=== PATIENT | male | born 1935 | race Caucasian/White ===

== ENCOUNTER 2019-11-28 08:48 | Outpatient (CLI) | payer MEDICARE, SELFPAY ==
[2019-11-28 09:50] LABS: Blood Urea Nitrogen 16 mg/dL (9-20); Carbon Dioxide 29 mmol/L (22-30); Chloride 102 mmol/L (98-107); Cholesterol 190 mg/dL (0-200); Estimated Glomerular Filt Rate > 60; Glucose 91 mg/dL (75-110); HDL Direct 36 mg/dL; Sodium 139 mmol/L (137-145); Triglycerides 93 mg/dL (<150)
[2019-11-28 10:01] LABS: LDL Cholesterol Direct 138 mg/dL
== END 2019-11-28 08:49 | disposition home or self-care (01) ==
PROVIDERS: PCP Family Medicine; Visit Provider Physician Assistant
DX: E04.1 Nontoxic single thyroid nodule (principal); E78.5 Hyperlipidemia, unspecified; I10 Essential (primary) hypertension
CPT/HCPCS: 36415; 80048; 80061; 84443

== ENCOUNTER 2020-07-31 10:55 | Outpatient (CLI) | payer MEDICARE, SELFPAY ==
[2020-07-31 11:26] LABS: Basophils Absolute Auto 0.1 K/mm3 (0.0-0.1); Basophils Percent Auto 1.1 % (0.2-1.2); Eosinophils Absolute Auto 0.4 K/mm3 (0-0.3); Eosinophils Percent Auto 4.9 % (0-4.4); Hematocrit 44.8 % (42.0-52.0); Hemoglobin 15.5 g/dL (14.0-18.0); Immature Granulocyte Absolute 0.09 K/mm3 (0.00-0.031); Immature Granulocyte Percent A 1.1 % (0-0.5); Lymphocytes Absolute Auto 2.31 K/mm3 (0.9-3.2); Lymphocytes Percent Auto 28.2 % (18.3-44.2); Mean Corpuscular HGB Conc 34.6 g/dl (32-36); Mean Corpuscular Hemoglobin 30.5 pg (26-34); Mean Corpuscular Volume 88.2 fl (80-100); Mean Platelet Volume 8.5 fl (7.4-10.4); Monocytes Absolute Auto 0.9 K/mm3 (0.1-0.6); Monocytes Percent Auto 10.5 % (2.6-8.5); Neutrophils Absolute Auto 4.4 K/mm3 (1.3-6.7); Neutrophils Percent Auto 54.2 % (45.5-73.1); Platelet Count Result 279 k/mm3 (150-375); Red Blood Count 5.08 M/mm3 (4.6-6.20); Red Cell Distribution Width 13.3 % (11.5-14.5); White Blood Count 8.2 K/mm3 (4.5-10.0)
[2020-07-31 11:29] LABS: Add Urine Microscopic? YES; Appearance Urine Clear (Clear); Bilirubin Urine Negative (Negative); Blood Urine Negative (Negative); Color Urine Yellow (Yellow); Glucose Urine UA Negative (Negative); Ketones Urine Negative (Negative); Leukocyte Esterase Ur Negative LEU/UL (NEGATIVE); Mucus Urine Rare /lpf; Nitrate Urine Negative (Negative); Protein Urine Negative (Negative); RBC Urine 0-2 /hpf (0-2); Specific Grav Ur 1.015 (1.001-1.035); WBC Urine 0-3 /hpf (0-3)
[2020-07-31 11:38] LABS: Alanine Aminotransferase 15 U/L (4-50); Alkaline Phosphatase 85 U/L (38-126); Anion Gap 4 mmol/L (8-16); Aspartate Amino Transferase 26 U/L (17-59); Bilirubin,Total 0.4 mg/dL (0.2-1.3); Blood Urea Nitrogen 19 mg/dL (9-20); Calcium 9.3 mg/dL (8.4-10.2); Carbon Dioxide 31 mmol/L (22-30); Chloride 104 mmol/L (98-107); Estimated Glomerular Filt Rate > 60; Glucose 86 mg/dL (75-110); Potassium 4.5 mmol/L (3.4-5.0); Sodium 139 mmol/L (137-145)
[2020-07-31 12:45] LABS: Folic Acid > 20.0 ng/mL (2.76->20)
== END 2020-07-31 10:56 | disposition home or self-care (01) ==
LOC: ANHLAB 10:57
PROVIDERS: PCP Family Medicine; Visit Provider Physician Assistant
DX: R35.0 Frequency of micturition (principal); I10 Essential (primary) hypertension; R53.83 Other fatigue
CPT/HCPCS: 36415; 80053; 81001; 82607; 82746; 84443; 85025; 87086

== ENCOUNTER 2021-02-15 15:45 | Emergency (ER) | payer MEDICARE, SELFPAY ==
--- NOTE | ~2021-02-15 | US_ITS ---
EXAMINATION: US abdomen limited DATE: 02/15/2021 17:29 INDICATION: Abdominal pain. TECHNIQUE: Multiple grayscale and Doppler ultrasound images of the abdomen were obtained. COMPARISON: CT abdomen and pelvis 05/23/2014 FINDINGS: The visualized portions of the head and body of the pancreas are normal. The liver is kyler l without focal lesion. There is normal flow in main portal vein. The gallbladder is normal in size. No gallstones or gallbladder wall thickening. There was no sonographic Harvey's sign. The common duct is normal and measures 4 mm. Right kidney is normal in size. IMPRESSION: 1. Normal right upper quadrant ultrasound. Reviewed, dictated and finalized at location A.
--- NOTE | ~2021-02-15 | CT_ITS ---
EXAMINATION: CT abdomen pelvis w con DATE: 02/15/2021 18:05 INDICATION: Epigastric abdominal pain. TECHNIQUE: Computed tomography (CT) of the abdomen and pelvis was performed with 100 mL Omnipaque 350 intravenous contrast. Automated exposure control and iterative reconstruction technique were employe d. The dose-length product was 662.54 mGy-cm. COMPARISON: CT abdomen and pelvis 05/23/2014 FINDINGS: The visualized portions of the lung bases demonstrate mild atelectasis. A calcified right l troy nodule is consistent with old granulomatous disease. No pleural effusion. The heart size is kyler l. No pericardial effusion. There is a large paraesophageal hiatal hernia where the fundus is below t he diaphragm. There is a 5 mm cyst in the liver. The gallbladder, spleen, pancreas, and left adrenal gland are normal. There is a stable 13 mm mass in right adrenal gland measuring soft tissue attenuati on, likely an adenoma. There are cysts in the kidneys measuring up to 22 mm on the left. There are ch anges of left inguinal hernia repair. The prostate is severely enlarged. There are no dilated loops o f bowel. The appendix is not visualized. There are no pathologically enlarged lymph nodes. There is n o free intraperitoneal fluid. There is lumbar dextroscoliosis and severe spondylosis. Again seen are scattered benign bone islands. IMPRESSION: 1. Large paraesophageal hiatal hernia. Reviewed, dictated and finalized at location A.
[2021-02-15 15:57] VITALS: BP 151/87; PULSE 77; RESP 18; TEMP 36.7; O2SAT 94
--- NOTE | 2021-02-15 15:57 | ECG_ITS ---
Measurements Intervals [place] Rate: 61 P: 27 CT: 205 QRS: -12 QRSD: 107 T: 21 QT: 393 QTc: 399 Interpretive Statements SINUS RHYTHM WITH MARKED SINUS ARRHYTHMIA DELAYED PRECORDIAL R/S TRANSITION BORDERLINE T WAVE ABNORMALITY- INFERIOR LEADS BASELINE ARTIFACT- I, II, AVR BORDERLINE ECG Electronically Signed On 02-15-2021 16:39:54 CDT by Emmanuel Gonzalez D.O.
--- NOTE | 2021-02-15 16:17 | ED.ABDPAIN ---
HPI - Abdominal Pain General Chief Complaint: Abdominal Pain Stated Complaint: ABD PAIN Time Seen by Provider: 02/15/21 16:06 Source: patient Mode of arrival: ambulatory Limitations: no limitations History of Present Illness HPI narrative: This is an 85 year old male with history of GERD, hypertension, hyperlipidemia who presents for evaluation of nausea and abdominal discomfort. He states he was eating pizza when he developed sudden onset epigastric abdominal discomfort. He states he feels as if he needs to throw up. He denies vomiting, diarrhea, fever, cough, sob, chest pain. HE denies having similar pain in the past. He took elicia Hope but this did not improve his pain. Denies history of gallbladder disease. Related Data Home Medications Medication Instructions Recorded Confirmed aspirin 81 mg chewable tablet 81 mg PO DAILY 10/31/19 02/01/21 taktucop-lgqh-lkr-folic acid 3,500 mg PO 10/31/19 02/01/21 unit-18 mg-0.4 mg chewable tablet omega 2-fgl-hmk-fish oil 100 cap PO 10/31/19 02/01/21 mg-160 mg-1,000 mg capsule vit C 250 mg-vit E 90 mg-zinc 40 1 tablet PO BID 10/31/19 02/01/21 mg-copper 1 qu-iisbtj-lqaxwn capsule Allergies Allergy/AdvReac Type Severity Reaction Status Date / Time No Known Allergies Allergy Verified 02/15/21 16:00 Review of Systems Review of Systems: All systems reviewed & are unremarkable except as noted in HPI and below PMFSH Past Medical History Medical History (Updated 02/15/21 @ 20:21 by Mercy Gr MD) GERD (gastroesophageal reflux disease) HTN (hypertension) Movement disorder Sore throat Surgical History Surgical History (Updated 02/15/21 @ 16:18 by Mercy Gr MD) History of tonsillectomy Hx of appendectomy Family History Family History Sibling Family history of thyroid disease Patient's sister is in good health Patient's brother is in good health Social History Social History Smoking status: Never smoker Second hand tobacco smoke exposure: No Alcohol intake: current Substance use: never Gender identity (if verbalized by the patient): Male Exam Const: General: no acute distress and alert Orientation/consciousness: patient oriented x3 Eyes: EOM: EOMs intact bilaterally Resp: Effort & Inspection: normal respiratory effort and no retractions Auscultation: clear to auscultation bilaterally Cardio: Rate: regular rate Rhythm: regular rhythm Heart sounds: no murmurs GI: GI Palp: Yes Soft to palpation, No Tenderness to palpation present (GI) and No Guarding due to palpation present (GI) Auscultation: normal bowel sounds Skin: General skin exam: normal color Rashes: no rashes Neuro: General: patient oriented x3, moves all extremities and CN's II-XI intact bilaterally Psych: Mental Status: mental status grossly normal Affect: normal affect Course Reevaluation(s) Reevaluation #1: I have discussed with patient CT findings of hiatal hernia. Gallbladder US is normal. He states he feels better. He still has some discomfort. He states he will follow up with PCP. Date: 02/15/21 Time: 20:19 Vital Signs Vital signs: Vital Signs Temperature 98.0 F 02/15/21 15:57 Pulse Rate 77 02/15/21 15:57 Respiratory Rate 18 02/15/21 15:57 Blood Pressure 151/87 H 02/15/21 15:57 Pulse Oximetry 94 02/15/21 15:57 Temperature 98.0 F 02/15/21 15:57 Pulse Rate 78 02/15/21 20:37 Respiratory Rate 18 02/15/21 20:37 Blood Pressure 132/78 02/15/21 20:37 Pulse Oximetry 99 02/15/21 20:37 MDM - Abdominal Pain Lab Data Attestation: I reviewed the patient's lab results. Result diagrams: 02/15/21 16:47 02/15/21 16:47 Labs: Lab Results 02/15/21 02/15/21 02/15/21 Range/Units 16:47 16:47 16:47 WBC 11.5 H (4.5-10.0) K/mm3 RBC 5.13 (4.6-6.20) M/mm3
[2021-02-15] MEDS: PANTOPRAZOLE SODIUM IV 40 MG VIAL IV PUSH (16:48)
[2021-02-15] MEDS: ONDANSETRON INJ 4 MG/2 ML VIAL IV PUSH (16:48)
[2021-02-15 16:54] LABS: Basophils Absolute Auto 0.1 K/mm3 (0.0-0.1); Basophils Percent Auto 0.5 % (0.2-1.2); Eosinophils Absolute Auto 0.1 K/mm3 (0-0.3); Eosinophils Percent Auto 0.4 % (0-4.4); Hematocrit 45.9 % (42.0-52.0); Hemoglobin 15.6 g/dL (14.0-18.0); Immature Granulocyte Absolute 0.11 K/mm3 (0.00-0.031); Lymphocytes Absolute Auto 1.27 K/mm3 (0.9-3.2); Lymphocytes Percent Auto 11.1 % (18.3-44.2); Mean Corpuscular Hemoglobin 30.4 pg (26-34); Mean Corpuscular Volume 89.5 fl (80-100); Mean Platelet Volume 8.3 fl (7.4-10.4); Monocytes Absolute Auto 0.5 K/mm3 (0.1-0.6); Monocytes Percent Auto 3.9 % (2.6-8.5); Neutrophils Absolute Auto 9.5 K/mm3 (1.3-6.7); Neutrophils Percent Auto 83.1 % (45.5-73.1); Platelet Count Result 241 k/mm3 (150-375); Red Blood Count 5.13 M/mm3 (4.6-6.20); Red Cell Distribution Width 13.3 % (11.5-14.5); White Blood Count 11.5 K/mm3 (4.5-10.0)
[2021-02-15 17:05] LABS: Lactic Acid Reflex 1.6 mmol/L (0.7-2.1)
[2021-02-15 17:06] LABS: Potassium 3.9 mmol/L (3.4-5.0)
[2021-02-15 17:07] LABS: Alanine Aminotransferase 18 U/L (4-50); Albumin Level 4.1 g/dL (3.5-5.1); Alkaline Phosphatase 79 U/L (38-126); Anion Gap 5 mmol/L (8-16); Aspartate Amino Transferase 31 U/L (17-59); Bilirubin,Total 0.7 mg/dL (0.2-1.3); Blood Urea Nitrogen 16 mg/dL (9-20); Carbon Dioxide 29 mmol/L (22-30); Chloride 103 mmol/L (98-107); Estimated CRCL calculation 50 ml/min; Estimated Glomerular Filt Rate > 60; Glucose 108 mg/dL (75-110); Lipase 67 U/L (23-300); Sodium 137 mmol/L (137-145)
[2021-02-15 17:17] LABS: Troponin I < 0.012 ng/mL (0.000-0.034)
[2021-02-15 18:23] LABS: Add Urine Microscopic? YES; Appearance Urine Clear (Clear); Bilirubin Urine Negative (Negative); Blood Urine Negative (Negative); Color Urine Yellow (Yellow); Glucose Urine UA Negative (Negative); Ketones Urine 1+ mg/dL (Negative); Leukocyte Esterase Ur Negative LEU/UL (Negative); Mucus Urine Rare /lpf; Nitrate Urine Negative (Negative); Protein Urine 1+ mg/dL (Negative); RBC Urine 0-2 /hpf (0-2); Specific Grav Ur 1.024 (1.001-1.035); Squamous Epithelial Cell Urine Rare /hpf (Few); Urobilinogen Urine Negative mg/dL (<2.0); WBC Urine 0-3 /hpf
[2021-02-15] MEDS: BELLADONNA ALK/PHENOB ELIX 10 ML, MAG HYDROX/ALUMINUM HYD/SIMETH 30 ML, LIDOCAINE HCL 2... PO (19:07)
[2021-02-15 19:22] VITALS: BP 159/78; PULSE 89; RESP 18; O2SAT 99
[2021-02-15 20:14] LABS: Troponin I < 0.012 ng/mL (0.000-0.034)
[2021-02-15] MEDS: HYOSCYAMINE SULFATE 0.125 MG TABLET PO (20:35)
[2021-02-15 20:37] VITALS: BP 132/78; PULSE 78; RESP 18; O2SAT 99
== END 2021-02-15 20:38 | disposition home or self-care (01) ==
PROVIDERS: Emergency Provider General Practice; PCP Family Medicine
DX: R10.84 Generalized abdominal pain (principal); K21.9 Gastro-esophageal reflux disease without esophagitis; I10 Essential (primary) hypertension; E78.5 Hyperlipidemia, unspecified; Z79.82 Long term (current) use of aspirin
CPT/HCPCS: 36415; 74177; 76705; 80053; 81001; 83605; 83690; 84484; 85025; 93005; 96365; 96375; 99284; A9270; C9113; J0131; J2405; Q9967

== ENCOUNTER 2021-03-03 16:37 | Outpatient (CLI) | payer MEDICARE, SELFPAY ==
--- NOTE | ~2021-03-03 | XR_ITS ---
EXAMINATION: XR abdomen/kub 1V INDICATION: Constipation TECHNIQUE: Supine views of the abdomen were obtained on 2 radiographs. COMPARISON: CT, 02/15/2021 FINDINGS: There is a moderate volume of colonic stool. No dilated loops of bowel are evident. The barbara g bases are clear. A large hiatal hernia is noted. There is severe lumbar spondylosis. Mild bilateral hip osteoarthritis is noted. There are phleboliths in the pelvis. IMPRESSION: 1. No acute findings. Reviewed, dictated and finalized at location A. IMPRESSION: 1. No acute findings.
== END 2021-03-03 16:38 | disposition home or self-care (01) ==
PROVIDERS: PCP Family Medicine; Visit Provider Family Medicine
DX: K59.00 Constipation, unspecified (principal)
CPT/HCPCS: 74018

== ENCOUNTER 2021-03-22 09:32 | Outpatient (CLI) | payer MEDICARE, SELFPAY ==
--- NOTE | ~2021-03-22 | NM_ITS ---
EXAMINATION: NM hepatobiliary wo pharm DATE: 03/22/2021 12:32 INDICATION: Unspecified abdominal pain. COMPARISON: CT abdomen and pelvis 02/15/2021 TECHNIQUE: 5.1 mCi Tc-99m mebrofenin (Choletec) was administered intravenously. Scintigraphic images of the abdomen were obtained for one hour. Then, the patient drank 8 oz Ensure, and imaging was cont inued for 60 minutes. FINDINGS: There is normal clearance of radiotracer from the blood pool. There is homogeneous tracer u ptake by the liver. Activity progresses to the bowel and gallbladder. Gallbladder ejection fraction (GBEF) was 58%. Note that with this technique, normal GBEF >= 33%. IMPRESSION: 1. Normal hepatobiliary scintigraphy. Reviewed, dictated and finalized at location A.
== END 2021-03-22 09:33 | disposition home or self-care (01) ==
LOC: ANHIMG 09:35
PROVIDERS: PCP Family Medicine; Visit Provider Family Medicine
DX: R10.9 Unspecified abdominal pain (principal)
CPT/HCPCS: 78226; A9537

== ENCOUNTER 2021-04-12 01:46 | Day surgery (SDC) | payer MEDICARE, SELFPAY ==
[2021-04-01 11:34] VITALS: BMI 23.1
[2021-04-12 09:05] VITALS: BP 138/82; PULSE 66; RESP 18; TEMP 36.5; O2SAT 95
[2021-04-12] MEDS: LACTATED RINGERS 1,000 ML 150 ML IV CONT (09:21)
--- NOTE | 2021-04-12 09:52 | PM.HPGS ---
History of Present Illness History of Present Illness Consent: Risks, benefits, and alternatives have been discussed and questions answered. Patient agrees to proceed with procedure. Chief complaint: weight loss and change in bowel habits, nausea Narrative: Faustino Yates is a 85 year old male who has been troubled by epigastric and abdominal pain which, primarily after eating. These may than last for several hours. If it subsides will come back when he eats again. He has been found to have a large paraesophageal hiatal hernia on CT scan. He denies dysphagia. He also has had a change in bowel habits. He denies seeing blood in his stools Review of Systems Review of Systems: All systems reviewed & are unremarkable except as noted in HPI and below PMFSH Past Medical History Medical History GERD (gastroesophageal reflux disease) Hiatal hernia HTN (hypertension) Movement disorder Sore throat Surgical History Surgical History History of tonsillectomy Hx of appendectomy Status post hernia repair Family History Family History Sibling Family history of thyroid disease Patient's sister is in good health Patient's brother is in good health Social History Social History Smoking status: Never smoker Second hand tobacco smoke exposure: No Alcohol intake: current Drinks per week: 7 Alcohol use details: 1 beer per day Substance use: never Substance use type: does not use Living arrangements: with family Gender identity (if verbalized by the patient): Male Spiritual care concerns: No Meds Home Medications and Allergies Home Medications Medication Instructions Recorded Confirmed Type aspirin 81 mg chewable tablet 81 mg PO DAILY 10/31/19 04/12/21 History omega 0-glz-nwl-fish oil 100 1 cap PO DAILY 10/31/19 04/12/21 History mg-160 mg-1,000 mg capsule vit C 250 mg-vit E 90 mg-zinc 40 1 tablet PO BID 10/31/19 04/12/21 History mg-copper 1 av-axltan-gjvutl capsule esomeprazole magnesium 40 mg 40 mg PO DAILY #90 cap 09/08/20 04/12/21 Rx capsule,delayed release losartan 25 mg tablet 25 mg PO DAILY #30 tablet 03/16/21 04/12/21 Rx carbidopa-levodopa 250 tablet PO DAILY 04/01/21 04/12/21 History Allergies Allergy/AdvReac Type Severity Reaction Status Date / Time No Known Allergies Allergy Verified 04/12/21 09:04 Vital Signs Vital Signs - 24 hr 04/12/21 09:05 Temperature 36.5 C Pulse Rate 66 Respiratory Rate 18 Blood Pressure 138/82 Pulse Oximetry 95 Exam Resp: Auscultation: clear to auscultation bilaterally Cardio: Rate: regular rate Rhythm: regular rhythm GI: GI Palp: Yes Soft to palpation and No Tenderness to palpation present (GI) Assessment and Plan Assessment and plan (1) Epigastric pain: Code(s): R10.13 - Epigastric pain Status: Acute Assessment and Plan: EGD with possible biopsy or dilatation or cautery. (2) Change in bowel habits: Code(s): R19.4 - Change in bowel habit Status: Acute Assessment and Plan: Colonoscopy with possible biopsy or polypectomy or cautery or injection of substances.
--- NOTE | 2021-04-12 09:53 | WPDANESEPPF ---
Anes - Initial Pre Proc Eval Procedure: Operation Date: 04/12/21 10:15 Proposed Procedures p Esophagogastroduodenoscopy and Colonoscopy - Jesus Manuel Chong MD Date/Time: 04/12/21 09:53 Surgeon: Jesus Manuel Chong MD Pre Op Diagnosis: weight loss and change in bowel habits, nausea Patient Data Age: 85 Gender: M Height: 1.78 m Weight: 74.6 kg Last Vital Signs Temp 97.7 F 04/12/21 09:05 Pulse 66 04/12/21 09:05 Resp 18 04/12/21 09:05 BP 138/82 04/12/21 09:05 Pulse Ox 95 04/12/21 09:05 Allergies Allergy/AdvReac Type Severity Reaction Status Date / Time No Known Allergies Allergy Verified 04/12/21 09:04 Home Medications Medication Instructions Recorded Confirmed Type aspirin 81 mg chewable tablet 81 mg PO DAILY 10/31/19 04/12/21 History omega 8-wkf-uwd-fish oil 100 1 cap PO DAILY 10/31/19 04/12/21 History mg-160 mg-1,000 mg capsule vit C 250 mg-vit E 90 mg-zinc 40 1 tablet PO BID 10/31/19 04/12/21 History mg-copper 1 fa-uhclvd-rkhcao capsule esomeprazole magnesium 40 mg 40 mg PO DAILY #90 cap 09/08/20 04/12/21 Rx capsule,delayed release losartan 25 mg tablet 25 mg PO DAILY #30 tablet 03/16/21 04/12/21 Rx carbidopa-levodopa 250 tablet PO DAILY 04/01/21 04/12/21 History Patient hx anesthesia problems: none Family hx anesthesia problems: none PMFSH Past Medical History Medical History GERD (gastroesophageal reflux disease) Hiatal hernia HTN (hypertension) Movement disorder Sore throat Surgical History Surgical History History of tonsillectomy Hx of appendectomy Status post hernia repair Family History Family History Sibling Family history of thyroid disease Patient's sister is in good health Patient's brother is in good health Social History Social History Smoking status: Never smoker Second hand tobacco smoke exposure: No Alcohol intake: current Drinks per week: 7 Alcohol use details: 1 beer per day Substance use: never Substance use type: does not use Living arrangements: with family Gender identity (if verbalized by the patient): Male Spiritual care concerns: No Anes - Eval Final PreProcedure Day of Procedure 04/12/21 09:53 Patient weight: normal Heart: regular rate and rhythm Lungs: clear to auscultation Airway: Mallampati scale class II Neurological: alert and oriented Last oral intake: >/= 8 hours ASA classification: III Emergent: no Anesthetic plan: proceed Anesthesia type and monitoring: general GIVS and standard monitoring Informed Consent: The patient's anesthetic plan and its attendant risks and benefits were discussed with the patient/family/POA. Questions were solicited and answers provided to the satisfaction of the patient/family/POA.
[2021-04-12 10:34] VITALS: BP 104/63; PULSE 58; RESP 24; O2SAT 96
[2021-04-12 10:44] VITALS: BP 111/69; PULSE 61; RESP 22; O2SAT 96
[2021-04-12 10:54] VITALS: BP 110/65; PULSE 62; RESP 20; O2SAT 98
== END 2021-04-12 11:06 | disposition home or self-care (01) ==
PROVIDERS: PCP Family Medicine; Visit Provider Internal Medicine Gastroenterology
PROC: 0DJ08ZZ Inspection of Upper Intestinal Tract, Via Natural or Artificial Opening Endoscopic (ICD-10-PCS; CPT 43235; principal; 2021-04-12 10:15)
DX: R19.7 Diarrhea, unspecified (principal); K59.00 Constipation, unspecified; K64.8 Other hemorrhoids; K22.70 Barrett's esophagus without dysplasia; K44.9 Diaphragmatic hernia without obstruction or gangrene; I10 Essential (primary) hypertension; K21.9 Gastro-esophageal reflux disease without esophagitis; Z79.82 Long term (current) use of aspirin
CPT/HCPCS: 45378; 43239; 87081; 88305; J2704; J7120

== ENCOUNTER 2021-06-08 09:54 | Outpatient (CLI) | payer MEDICARE, SELFPAY ==
--- NOTE | ~2021-06-08 | XR_ITS ---
EXAMINATION: XR chest 2V DATE: 06/08/2021 11:33 INDICATION: Hiatal hernia. Encounter for other preprocedural examination. TECHNIQUE: Frontal and lateral views of the chest were obtained. COMPARISON: Chest 2 views 07/12/2019 FINDINGS: There is mild scarring at left lung apex. There is no pneumonia, pleural effusion, or pneum othorax. The heart size is normal. There is a large hiatal hernia. IMPRESSION: 1. Large hiatal hernia. Reviewed, dictated and finalized at location A. IMPRESSION: 1. Large hiatal hernia.
--- NOTE | 2021-06-08 11:00 | ECG_ITS ---
Measurements Intervals [place] Rate: 55 P: -18 NV: 198 QRS: -7 QRSD: 94 T: 7 QT: 405 QTc: 390 Interpretive Statements SINUS BRADYCARDIA BORDERLINE R WAVE PROGRESSION, ANTERIOR LEADS BASELINE ARTIFACT- I, III, AVR, AVL, AVF BORDERLINE ECG Electronically Signed On 06-08-2021 11:22:37 CDT by Emmanuel Gonzalez D.O.
[2021-06-08 11:32] LABS: Hematocrit 46.4 % (42.0-52.0); Hemoglobin 15.3 g/dL (14.0-18.0); Mean Platelet Volume 8.6 fl (7.4-10.4); Platelet Count Result 252 k/mm3 (150-375); Red Cell Distribution Width 13.7 % (11.5-14.5); White Blood Count 7.8 K/mm3 (4.5-10.0)
[2021-06-08 11:45] LABS: Anion Gap 8 mmol/L (8-16); Blood Urea Nitrogen 16 mg/dL (9-20); Calcium 9.2 mg/dL (8.4-10.2); Carbon Dioxide 28 mmol/L (22-30); Chloride 101 mmol/L (98-107); Estimated Glomerular Filt Rate > 60; Glucose 85 mg/dL (65-110); Potassium 4.1 mmol/L (3.4-5.0); Sodium 137 mmol/L (137-145)
== END 2021-06-08 09:55 | disposition home or self-care (01) ==
LOC: ANHSURGERY 10:00
PROVIDERS: PCP Family Medicine; Visit Provider Surgery
DX: Z01.818 Encounter for other preprocedural examination (principal); K44.9 Diaphragmatic hernia without obstruction or gangrene
CPT/HCPCS: 36415; 71046; 80048; 85027; 86850; 86900; 86901; 93005

== ENCOUNTER 2021-08-03 11:49 | Emergency (ER) | payer MEDICARE, SELFPAY ==
[2021-08-03 11:52] VITALS: BP 140/95; PULSE 116; RESP 20; TEMP 36.4; O2SAT 97
[2021-08-03 12:07] LABS: Basophils Absolute Auto 0.1 K/mm3 (0.0-0.1); Basophils Percent Auto 0.9 % (0.2-1.2); Eosinophils Absolute Auto 0.3 K/mm3 (0-0.3); Hematocrit 46.8 % (42.0-52.0); Hemoglobin 15.9 g/dL (14.0-18.0); Immature Granulocyte Absolute 0.05 K/mm3 (0.00-0.031); Immature Granulocyte Percent A 0.5 % (0-0.5); Lymphocytes Absolute Auto 2.51 K/mm3 (0.9-3.2); Lymphocytes Percent Auto 27.2 % (18.3-44.2); Mean Corpuscular Hemoglobin 30.3 pg (26-34); Mean Corpuscular Volume 89.3 fl (80-100); Mean Platelet Volume 8.4 fl (7.4-10.4); Monocytes Absolute Auto 0.8 K/mm3 (0.1-0.6); Neutrophils Absolute Auto 5.5 K/mm3 (1.3-6.7); Neutrophils Percent Auto 59.4 % (45.5-73.1); Platelet Count Result 280 k/mm3 (150-375); Red Blood Count 5.24 M/mm3 (4.6-6.20); White Blood Count 9.2 K/mm3 (4.5-10.0)
[2021-08-03 12:20] LABS: Alanine Aminotransferase 10 U/L (4-50); Albumin Level 4.5 g/dL (3.5-5.1); Alkaline Phosphatase 77 U/L (38-126); Anion Gap 6 mmol/L (8-16); Aspartate Amino Transferase 21 U/L (17-59); Bilirubin,Total 0.9 mg/dL (0.2-1.3); Blood Urea Nitrogen 19 mg/dL (9-20); Calcium 9.6 mg/dL (8.4-10.2); Carbon Dioxide 31 mmol/L (22-30); Chloride 103 mmol/L (98-107); Estimated CRCL calculation 41 ml/min; Estimated Glomerular Filt Rate 58; Glucose 98 mg/dL (65-110); Lipase 82 U/L (23-300); Potassium 4.1 mmol/L (3.4-5.0); Sodium 140 mmol/L (137-145)
[2021-08-03 15:13] VITALS: BP 180/95; PULSE 73; RESP 16; O2SAT 98
[2021-08-03] MEDS: BELLADONNA ALK/PHENOB ELIX 10 ML, MAG HYDROX/ALUMINUM HYD/SIMETH 30 ML, LIDOCAINE HCL 2... PO (15:42)
[2021-08-03 16:03] LABS: Add Urine Microscopic? YES; Appearance Urine Cloudy (Clear); Bilirubin Urine Negative (Negative); Blood Urine Negative (Negative); Color Urine Amber (Yellow); Glucose Urine UA Negative (Negative); Ketones Urine 1+ mg/dL (Negative); Leukocyte Esterase Ur Negative LEU/UL (Negative); Mucus Urine Heavy /lpf; Nitrate Urine Negative (Negative); Protein Urine 1+ mg/dL (Negative); Specific Grav Ur 1.028 (1.001-1.035); Squamous Epithelial Cell Urine Rare /hpf (Few); WBC Urine 0-3 /hpf
--- NOTE | 2021-08-03 16:33 | ED.ABDPAIN ---
HPI - Abdominal Pain General Chief Complaint: Abdominal Pain Stated Complaint: abd discomfort Time Seen by Provider: 08/03/21 15:09 History of Present Illness HPI narrative: Patient is an 86-year-old male who presents ER with epigastric discomfort/fullness. Worse when he eats. Has history of hiatal hernia and is supposed to undergo operative repair in 9 days. Reports early satiety and 3 pound weight loss. No nausea or vomiting. Has burning pain when he eats. Takes omeprazole 1 time a day. No fevers or chills or sweats. He is passing gas without issue and having normal bowel movements. He does use MiraLAX. Related Data Home Medications Medication Instructions Recorded Confirmed omega 3-sdy-zlx-fish oil 100 1 cap PO DAILY 10/31/19 06/08/21 mg-160 mg-1,000 mg capsule vit C 250 mg-vit E 90 mg-zinc 40 1 tablet PO DAILY 10/31/19 06/08/21 mg-copper 1 wc-gxqhzm-rhonrg capsule aspirin [Aspir-81] 81 mg PO DAILY 06/08/21 06/08/21 losartan 25 mg PO QAM 06/08/21 06/08/21 lymummts-too-LY-lycopen-lutein 1 tablet PO DAILY 06/08/21 06/08/21 [Centrum Silver Men] Allergies Allergy/AdvReac Type Severity Reaction Status Date / Time No Known Allergies Allergy Verified 06/08/21 10:18 Review of Systems Review of Systems: All systems reviewed & are unremarkable except as noted in HPI and below Constitutional: Constitutional: Denies chills, Denies fever(s) and Denies weakness Cardiovascular: Cardiovascular: Denies chest pain, Denies rapid heart rate and Denies radiating jaw, neck or arm pain Respiratory: Respiratory: Denies cough and Denies dyspnea Gastrointestinal: Gastrointestinal: Reports abdominal pain, Denies bloating, Denies constipation, Reports heartburn, Denies diarrhea, Denies nausea and Denies vomiting Neurologic: Denies focal weakness and Denies numbness [facility] Past Medical History Medical History (Updated 08/03/21 @ 16:47 by Bartolo Bernard MD) GERD (gastroesophageal reflux disease) Hiatal hernia HTN (hypertension) Movement disorder Restless leg syndrome Sore throat Surgical History Surgical History H/O colonoscopy 04/12/2021 History of tonsillectomy Hx of appendectomy S/P thyroid biopsy Status post hernia repair Family History Family History Sibling Family history of thyroid disease Patient's sister is in good health Patient's brother is in good health Son Diabetes mellitus Grandparent Throat cancer Social History Social History Smoking status: Never smoker Second hand tobacco smoke exposure: No Alcohol intake: current Drinks per week: 7 Alcohol use details: 1 beer per day Substance use: never Substance use type: does not use Additional living arrangements comments: SIGNIFICANT OTHER Gender identity (if verbalized by the patient): Male Sexual Orientation (if Verbalized by the Patient): Straight or Heterosexual Spiritual care concerns: No Exam Narrative: GENERAL: Well-appearing, well-nourished, and in no acute distress. HEAD: Normocephalic, atraumatic. CHEST: Clear to auscultation. No respiratory distress. HEART: Regular rate and rhythm. Normal peripheral pulses. ABDOMEN: Soft, nontender, nondistended. EXTREMITIES: Normal range of motion. No edema. SKIN: Warm, dry, no rash. NEURO: Alert and oriented x3. PSYCH: Normal mood and affect. Course Course Emergency Course: Symptoms improved with GI cocktail. Recommend increasing PPI to twice a day. May also use oral times. Patient verbalized understanding. Discharge home. Vital Signs Vital signs: Vital Signs Temperature 97.5 F L 08/03/21 11:52 Pulse Rate 116 H 08/03/21 11:52 Respiratory Rate 20 08/03/21 11:52 Blood Pressure 140/95 H 08/03/21 11:52 Pulse Oximetry 97 08/03/21 11:52 Temperature 97.5 F L
== END 2021-08-03 16:55 | disposition home or self-care (01) ==
PROVIDERS: Emergency Medicine; Emergency Provider Emergency Medicine; PCP Family Medicine
DX: K29.70 Gastritis, unspecified, without bleeding (principal); K44.9 Diaphragmatic hernia without obstruction or gangrene; K21.9 Gastro-esophageal reflux disease without esophagitis; I10 Essential (primary) hypertension; G25.81 Restless legs syndrome; Z79.82 Long term (current) use of aspirin
CPT/HCPCS: 36415; 80053; 81001; 83690; 85025; 99283; A9270

== ENCOUNTER 2021-08-06 14:36 | Outpatient (CLI) | payer MEDICARE, SELFPAY | END 2021-08-06 14:37 | disposition home or self-care (01) | LOC: ANHSURGERY 14:39 | PROVIDERS: PCP Family Medicine; Visit Provider Surgery | DX: Z01.812 Encounter for preprocedural laboratory examination (principal); K44.9 Diaphragmatic hernia without obstruction or gangrene | CPT/HCPCS: 36415; 86850; 86900; 86901 ==

== ENCOUNTER 2021-08-13 15:44 | Inpatient (IN) | payer MEDICARE, SELFPAY ==
[2021-06-08 10:25] VITALS: BP 142/74; PULSE 58; RESP 16; TEMP 36.8; O2SAT 96; BMI 24.2
[2021-08-06 13:23] VITALS: BMI 24.0
--- NOTE | 2021-08-11 11:00 | WPDANESEPPF ---
Anes - Initial Pre Proc Eval Procedure: Operation Date: 08/12/21 10:30 Proposed Procedures p Repair Paraesophageal Hiatal Hernia, with Laparoscopic Griselda Fundoplication - Mumtaz Suero MD Date/Time: 08/11/21 11:00 Surgeon: Mumtaz Suero MD Pre Op Diagnosis: paraesophageal hiatal hernia Patient Data Age: 86 Gender: M Height: 1.78 m Weight: 76 kg Last Vital Signs Temp 36.8 C 06/08/21 10:25 Pulse 58 L 06/08/21 10:25 Resp 16 06/08/21 10:25 BP 142/74 H 06/08/21 10:25 Pulse Ox 96 06/08/21 10:25 Allergies Allergy/AdvReac Type Severity Reaction Status Date / Time No Known Allergies Allergy Verified 08/12/21 09:41 Home Medications Medication Instructions Recorded Confirmed Type omega 6-ivv-pcu-fish oil 100 1 cap PO DAILY 10/31/19 08/12/21 History mg-160 mg-1,000 mg capsule vit C 250 mg-vit E 90 mg-zinc 40 1 tablet PO DAILY 10/31/19 08/12/21 History mg-copper 1 dd-hibebg-vozssk capsule aspirin [Aspir-81] 81 mg PO DAILY 06/08/21 08/12/21 History losartan 25 mg PO QAM 06/08/21 08/12/21 History dlmfrzum-lej-KH-lycopen-lutein 1 tablet PO DAILY 06/08/21 08/12/21 History [Centrum Silver Men] carbidopa 25 mg-levodopa 250 mg See Rx Instructions .ROUTE 06/09/21 08/12/21 Rx tablet .COMPLEX #90 tablet esomeprazole magnesium 40 mg 40 mg PO DAILY #90 cap 07/20/21 08/12/21 Rx capsule,delayed release Patient hx anesthesia problems: none Family hx anesthesia problems: none Results Review: All pre-operative results and documents have been reviewed as part of the pre-operative evaluation. [facility] Past Medical History Medical History GERD (gastroesophageal reflux disease) Hiatal hernia HTN (hypertension) Movement disorder Restless leg syndrome Sore throat Surgical History Surgical History H/O colonoscopy 04/12/2021 History of tonsillectomy Hx of appendectomy S/P thyroid biopsy Status post hernia repair Family History Family History Sibling Family history of thyroid disease Patient's sister is in good health Patient's brother is in good health Son Diabetes mellitus Grandparent Throat cancer Social History Social History Smoking status: Never smoker Second hand tobacco smoke exposure: No Alcohol intake: current Drinks per week: 7 Alcohol use details: 1 beer per day Substance use: never Substance use type: does not use Living arrangements: with friend(s) Additional living arrangements comments: SIGNIFICANT OTHER Gender identity (if verbalized by the patient): Male Sexual Orientation (if Verbalized by the Patient): Straight or Heterosexual Spiritual care concerns: No Anes - Eval Final PreProcedure Day of Procedure 08/11/21 11:00 Patient weight: normal Heart: regular rate and rhythm Lungs: clear to auscultation and normal air movement Airway: Mallampati scale class II Neurological: alert and oriented Last oral intake: >/= 8 hours ASA classification: III Emergent: no Anesthetic plan: proceed Anesthesia type and monitoring: general ETT and standard monitoring Results Review: All pre-operative results and documents have been reviewed as part of the pre-operative evaluation. Informed Consent: The patient's anesthetic plan and its attendant risks and benefits were discussed with the patient/family/POA. Questions were solicited and answers provided to the satisfaction of the patient/family/POA.
--- NOTE | 2021-08-11 17:31 | PM.IMHP ---
H&P: HPI History of Present Illness Date/Time: 08/11/21 17:31 Chief Complaint: Epigastric abdominal pain Narrative: patient is an 85-year-old man who frequently has epigastric abdominal pain after eating. He has had a poor appetite and has lost some weight. He has early satiety as well. He was seen by Dr. Chong who performed upper endoscopy 04/12/2021. 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 There was moderate chronic esophagitis and a large hiatal hernia. He had been in the emergency room February 15, [address] scan which also showed a large paraesophageal hiatal hernia. He was seen in the office back in April. Plans were made to proceed with repair of his paraesophageal hiatal hernia laparoscopically with Griselda fundoplication. Due to the COVID pandemic and limited surgical services due to high since this, the surgery could not be scheduled until recently. Patient is now taken to surgery for laparoscopic repair of paraesophageal hiatal hernia with Griselda fundoplication. Patient has continued to have symptoms and in fact was just in the emergency room in July with epigastric abdominal pain, early satiety, and trouble eating. Workup at that time revealed no new problems or evidence of gastric obstruction. His albumin was 4.5. He was discharged home but is now taken to surgery as discussed. Review of Systems Review of Systems: All systems reviewed & are unremarkable except as noted in HPI and below Constitutional: Constitutional: Denies chills and Denies fever(s) Cardiovascular: Cardiovascular: Denies chest pain, Denies diaphoresis, Denies dyspnea and Denies paroxysmal nocturnal dyspnea Respiratory: Respiratory: Denies chest congestion, Denies cough and Denies dyspnea Integumentary/Breasts: Skin/Breast: Denies lesions and Denies rash PMFSH Past Medical History Medical History GERD (gastroesophageal reflux disease) Hiatal hernia HTN (hypertension) Movement disorder Restless leg syndrome Sore throat Surgical History Surgical History H/O colonoscopy 04/12/2021 History of tonsillectomy Hx of appendectomy S/P thyroid biopsy Status post hernia repair Family History Family History Sibling Family history of thyroid disease Patient's sister is in good health Patient's brother is in good health Son Diabetes mellitus Grandparent Throat cancer Social History Social History Smoking status: Never smoker Second hand tobacco smoke exposure: No Alcohol intake: current Drinks per week: 7 Alcohol use details: 1 beer per day Substance use: never Substance use type: does not use Additional living arrangements comments: SIGNIFICANT OTHER Gender identity (if verbalized by the patient): Male Sexual Orientation (if Verbalized by the Patient): Straight or Heterosexual Spiritual care concerns: No Meds Home Medications and Allergies Home Medications Medication Instructions Recorded Confirmed Type omega 5-zas-gck-fish oil 100 1 cap PO DAILY 10/31/19 08/06/21 History mg-160 mg-1,000 mg capsule vit C 250 mg-vit E 90 mg-zinc 40 1 tablet PO DAILY 10/31/19 08/06/21 History mg-copper 1 bw-kpwjlo-pqapqc capsule aspirin [Aspir-81] 81 mg PO DAILY 06/08/21 08/06/21 History losartan 25 mg PO QAM 06/08/21 08/06/21 History xdazmucf-gmd-YF-lycopen-lutein 1 tablet PO DAILY 06/08/21 08/06/21 History [Centrum Silver Men] carbidopa 25 mg-levodopa 250 mg See Rx Instructions .ROUTE 06/09/21 08/06/21 Rx tablet .COMPLEX #90 tablet esomeprazole magnesium 40 mg 40 mg PO DAILY #90 cap 07/20/21 08/06/21 Rx capsule,delayed release Allergies Allergy/AdvReac Type Severity Reaction Status Date / Time No Known Allergies Allergy Verified 08/06/21 13:22
[2021-08-12] VITALS (9 sets, daily range): BP systolic 119–152; BP diastolic 58–79; PULSE 60–77; RESP 13–20; TEMP 36.1–36.7; O2SAT 92–100
[2021-08-12] MEDS: ACETAMINOPHEN 500 MG TABLET 1000 MG PO (09:45)
[2021-08-12] MEDS: LACTATED RINGERS 1,000 ML 30 ML IV CONT ×2 (09:55→15:52)
[2021-08-12] MEDS: KETOROLAC 15 MG/ML VIAL (*BKC) IV PUSH (09:59)
--- NOTE | 2021-08-12 11:37 | WPDHPUPDATE1 ---
History and Physical Update Update Date/Time: 08/12/21 11:37 History and Physical has been reviewed, including an updated exam of the patient. There are NO changes in the patient's condition. Risks, benefits, and alternatives have been discussed and questions answered. Patient agrees to proceed with procedure.
[2021-08-12] MEDS: ceFAZolin 2 GM/D5W 50 ML 2 GM/50 ML BAG IVPB (12:00)
--- NOTE | 2021-08-12 15:12 | P.PCNANE_ITS ---
Arterial Cath Proc Note Consent: I have discussed with the patient/family/POA, the non-emergent placement of an arterial catheter, including its clinical necessity/indication and associated potential risks and complications. The patient/family/POA and/or understand(s) and acknowledge(s) the need to proceed with the arterial catheter insertion as an important element of the patient's clinical management. Given emergent patient conditions, temporal constraints may have precluded informed consent. Time-Out: A pre-procedural Time-Out was completed immediately before starting the procedure and confirmed: Patient Identification, Site, Procedure, Patient Position and the Availability of Requisite Equipment. 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
--- NOTE | 2021-08-12 15:52 | W.PM.PROC2 ---
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 CT scan of the abdomen and pelvis showed a paraesophageal hiatal hernia. Patient has had some obstructive symptoms of epigastric abdominal pain vomiting early satiety. He is taken to surgery now for laparoscopic repair of paraesophageal hiatal hernia with Griselda fundoplication. Findings Showed a large paraesophageal hiatal hernia with most of the stomach in the mediastinum. The stomach was also twisted on itself and there was a large hernia sac. Description of Procedure Patient was taken to surgery and induced into general anesthesia. The abdomen is prepped and draped. Ayala catheter had been placed. Initial incision was placed in the midline above the umbilicus. Local was infiltrated here and then incision was made. The varies needle was used to gain intraperitoneal location. Saline drop test was used to check the location. We then insufflated through the varies needle. Once we were adequately insufflated, a 10 11 port was placed here. We then placed to lateral subcostal ports, 1 on the right and 1 on the left under direct visualization. The 1 on the right was a 12 mm port, the other was a 10 11. We placed 2 other 10 11 ports on the either side of midline cephalad to the initial laparoscopic site. Through the 12 mm right subcostal port we passed the liver retractor. This was used to elevate the lateral segment of the left lobe of the liver and expose the hiatal hernia. The patient was placed in reverse Trendelenburg. The LigaSure was used for nearly all the dissection that was not done bluntly. Hemostasis was achieved with the LigaSure as well. We started by dividing the hepatogastric ligament and gaining access to the right zoe of the diaphragm. Some of the hernia sac was dissected free on the right side. The stomach was mostly reduced from the mediastinum. We then started our dissection going across the anterior aspect of the zoe with the LigaSure. We dissected around the hernia sac and mostly reduced into the peritoneal cavity. Some dissection around the mediastinal esophagus was carried out on the patient's right as well. We then turned our attention to the greater curvature of the stomach and the associated hernia sac there. There were numerous adhesions to the left zoe of the diaphragm. There were adhesions associated with the hernia sac. All of these were taken down with the LigaSure. We exposed the left zoe of the diaphragm. We divided the greater omentum and gained access to the lesser sac. We then continued this dissection with the LigaSure dividing the greater omentum from the upper stomach and cardia of the stomach all the way to the hiatus. There was some adhesions to the posterior upper stomach which were also taken down. We then started dissecting the hernia sac on the left side of the stomach and mediastinum down into the abdominal cavity as well. We then excised some of the hernia sac both from the left side and the right side. Several pieces of hernia sac were removed and sent labeled hernia sac for hiatal hernia. When this was accomplished, we then dissected the mediastinal attachments to the left side of the esophagus thereby mobilizing it. The stomach was now lying pretty well within the abdomen. I went back to the right side of the esophagus. I dissected in the area of the posterior zoe dissecting under the distal esophagus in elevating the esop
--- NOTE | 2021-08-12 16:31 | SUR.PHASEI ---
1620: Arterial line pulled per RN. Pressure dressing applied. No bleeding noted at this time.
--- NOTE | 2021-08-12 17:26 | PC.NURSE ---
This patient, Faustino Yates, was admitted to Medical Room 253-01. Patient/family oriented to hospital policies and general routines including ID bracelet, bed and alarms, visiting hours, pain management, procedures, bathroom and other care routines, personal items, smoking policy, room service/diet, and visiting hours. Information on how to activate the Rapid Response Team has been discussed. Patient/Family are encouraged to report perceived risks to care and to ask questions if they do not understand what they are told or what they should do.
[2021-08-12] MEDS: LACTATED RINGERS 1,000 ML 100 ML IV CONT (17:31)
[2021-08-12] MEDS: IBUPROFEN IV 800 MG/200 ML 800 MG/200 ML BAG 400 MG IVPB (21:50)
[2021-08-13] VITALS (7 sets, daily range): BP systolic 115–127; BP diastolic 60–65; PULSE 70–78; RESP 16–18; TEMP 36.3–37.3; O2SAT 93–98; BMI 22.7
--- NOTE | 2021-08-13 00:48 | PC.NURSE ---
Pt had lawson catheter initiated for surgery, there is no order to remove catheter and there is no documentation for who/when catheter was placed/removed. Dr Medley notified pt unable to urinate, order received to replace lawson catheter at this time.
[2021-08-13] MEDS: LIDOCAINE HCL 2% GEL UROJET 10 ML PKG MUCOUS MEM (00:50)
[2021-08-13] MEDS: LACTATED RINGERS 1,000 ML 100 ML IV CONT ×2 (03:31→13:23)
[2021-08-13] MEDS: IBUPROFEN IV 800 MG/200 ML 800 MG/200 ML BAG 400 MG IVPB ×2 (03:44→13:29)
[2021-08-13 05:27] LABS: Hematocrit 38.5 % (42.0-52.0); Hemoglobin 12.9 g/dL (14.0-18.0); Mean Corpuscular HGB Conc 33.5 g/dl (32-36); Mean Corpuscular Hemoglobin 30.7 pg (26-34); Mean Corpuscular Volume 91.7 fl (80-100); Mean Platelet Volume 8.9 fl (7.4-10.4); Platelet Count Result 174 k/mm3 (150-375); Red Cell Distribution Width 13.2 % (11.5-14.5)
[2021-08-13 05:42] LABS: Anion Gap 4 mmol/L (8-16); Blood Urea Nitrogen 14 mg/dL (9-20); Calcium 8.2 mg/dL (8.4-10.2); Carbon Dioxide 28 mmol/L (22-30); Chloride 103 mmol/L (98-107); Estimated CRCL calculation 54 ml/min; Estimated Glomerular Filt Rate > 60; Glucose 109 mg/dL (65-110); Potassium 4.2 mmol/L (3.4-5.0); Sodium 135 mmol/L (137-145)
[2021-08-13] MEDS: ENOXAPARIN 40 MG/0.4 ML SYRINGE SUB-Q (09:39)
[2021-08-13] MEDS: LOSARTAN POTASSIUM 25 MG TABLET PO (09:39)
[2021-08-13] MEDS: CARBIDOPA/LEVODOPA 25/250 MG TABLET 1 TABLET BY MOUTH (09:39)
[2021-08-13] MEDS: OPTI-GEN TAB 1 TABLET PO (09:39)
[2021-08-13] MEDS: ASPIRIN 81 MG ENTERIC TABLET PO (09:40)
[2021-08-13] MEDS: PANTOPRAZOLE 40 MG TABLET PO (09:40)
[2021-08-13] MEDS: ONDANSETRON INJ 4 MG/2 ML VIAL IV PUSH (10:53)
[2021-08-13] MEDS: MORPHINE SULFATE (*CRX) 2 MG/ML INJ IV PUSH (10:54)
--- NOTE | 2021-08-13 13:11 | WPDANESPN ---
Anes - Prog Note Post-Op Date/Time: 08/13/21 13:11 Cardiovascular status: normal Respiratory status: normal Airway patency: baseline Mental status: baseline Post-Op hydration status: normal Vital Signs: Last Vital Signs Temp 37.3 C 08/13/21 12:00 Pulse 78 08/13/21 12:00 Resp 16 08/13/21 12:00 BP 116/62 08/13/21 12:00 Pulse Ox 95 08/13/21 12:00 Pain Score (VAS): 3 I/O: Intake & Output 08/12/21 08/13/21 08/13/21 23:59 07:59 15:59 Intake Total 1150 1200 420 Balance 1150 1200 420 Laboratory Tests 08/13/21 05:06 08/13/21 05:06 08/13/21 08/13/21 05:06 05:06 WBC 8.0 RBC 4.20 L Hgb 12.9 L D Hct 38.5 L MCV 91.7 MCH 30.7 MCHC 33.5 RDW 13.2 Plt Count 174 MPV 8.9 Sodium 135 L Potassium 4.2 Chloride 103 Carbon Dioxide 28 Anion Gap 4 L BUN 14 D Creatinine 0.90 Estim Creat Clear Calc 54 Estimated GFR > 60 Glucose 109 Calcium 8.2 L Post-procedural complaints: none Patient Feedback: Patient satisfied with anesthetic care.
--- NOTE | 2021-08-13 13:37 | PM.PNGS ---
Progress Note: A&P Assessment and Plan (1) Paraesophageal hiatal hernia: Code(s): K44.9 - Diaphragmatic hernia without obstruction or gangrene Status: Chronic Assessment and Plan: Doing okay postop day 1. Laparoscopic repair of large paraesophageal hiatal hernia with Griselda fundoplication. Advised patient to take pain medication when uncomfortable. Offered sleeping pill but he declined. Up today. Leave Ayala catheter in today but DC tomorrow. Will likely feel better in 24-48 hours. (2) GERD with esophagitis: Code(s): K21.00 - Gastro-esophageal reflux disease with esophagitis, without bleeding Status: Chronic (3) Restless leg syndrome: Code(s): G25.81 - Restless legs syndrome Status: Chronic Assessment and Plan: Continue home meds (4) HTN (hypertension): Qualifiers: Hypertension type: unspecified Qualified Code(s): I10 - Essential (primary) hypertension Code(s): I10 - Essential (primary) hypertension Status: Chronic Assessment and Plan: Monitor, continue home meds Subjective Subjective Date/Time Seen: 08/13/21 13:37 Post Op day: 1 Patient reports: still having pain, no flatus, no bowel movement and afebrile Interval history: Trouble sleeping last night, had more pain than he thought he would. Less pain this morning than last night. Exam Const: General: comfortable, no acute distress, alert and awake Nutritional Appearance: thin GI: Inspection: non-distended, incision (Dry and healing well) and scaphoid GI Palp: Yes Soft to palpation, Yes Tenderness to palpation present (GI) and No Hernia present Auscultation: normal bowel sounds Objective Data Vital Signs Vital Signs: Vital Signs - 24 hr 08/12/21 15:52 08/12/21 16:05 08/12/21 16:20 Temperature 36.1 C L Pulse Rate 74 60 67 Respiratory Rate 20 18 20 Blood Pressure 128/79 152/74 H 127/70 Pulse Oximetry 98 100 92 08/12/21 16:35 08/12/21 16:50 08/12/21 19:55 Temperature 36.3 C L Pulse Rate 65 66 67 Respiratory Rate 20 13 16 Blood Pressure 123/69 134/58 L 134/72 Pulse Oximetry 95 93 98 08/12/21 20:38 08/12/21 23:55 08/13/21 03:55 Temperature 36.3 C L 36.4 C L Pulse Rate 68 77 73 Respiratory Rate 18 16 16 Blood Pressure 119/68 115/61 Pulse Oximetry 94 95 98 08/13/21 08:00 08/13/21 09:29 08/13/21 12:00 Temperature 36.4 C L 37.3 C Pulse Rate 72 78 Respiratory Rate 16 16 16 Blood Pressure 118/60 116/62 Pulse Oximetry 97 98 95 08/13/21 13:29 Temperature 37.3 C Pulse Rate Respiratory Rate Blood Pressure Pulse Oximetry Intake/Output Intake/Output: Intake & Output 08/10/21 08/11/21 08/12/21 08/13/21 23:59 23:59 23:59 23:59 Intake Total 1200 2620 Balance 1200 2620 Meds/Results Medications: Active Medications Generic Name Dose Route Start Last Admin Trade Name Freq PRN Reason Stop Dose Admin Acetaminophen 500 mg 08/12/21 16:59 Acetaminophen 500 Mg Tablet PO Q6H PRN Mild Pain (1-3) or Fever Aspirin 81 mg 08/13/21 09:00 08/13/21 09:40 Aspirin 81 Mg Enteric Tablet PO 81 mg DAILY REBECA Administration Carbidopa/Levodopa 1 tablet 08/13/21 09:00 08/13/21 09:39 Carbidopa/Levodopa 25/250 Mg Tablet BY MOUTH 1 tablet DAILY REBECA Administration Enoxaparin Sodium 40 mg 08/13/21 09:00 08/13/21 09:39 Enoxaparin 40 Mg/0.4 Ml Syringe SUB-Q 40 mg DAILY REBECA Administration Lactated Ringer's 1,000 mls @ 80 mls/hr 08/12/21 16:59 08/13/21 13:29 Lr - Lactated Ringers Iv IV CONT 0 mls/hr .[id number] REBECA Infusion Ibuprofen 800 mg in 200 mls @ 400 mls/hr 08/12/21 16:59 08/13/21 13:29 Caldolor 800 Mg/200 Ml IVPB 400 mls/hr Q6H PRN Administration Pain Rated 4-6 Losartan Potassium 25 mg 08/13/21 09:00 08/13/21 09:39 Losartan Potassium 25 Mg Tablet PO 25 mg QAM REBECA Administration Morphine Sulfate 2 mg 08/12/21 17:23 08/13/21 10:54 Morphine Sulfate (*Crx) 2 Mg/M
[2021-08-14] MEDS: IBUPROFEN IV 800 MG/200 ML 800 MG/200 ML BAG 400 MG IVPB (01:27)
[2021-08-14 05:49] LABS: Hematocrit 37.6 % (42.0-52.0); Hemoglobin 12.8 g/dL (14.0-18.0); Mean Platelet Volume 9.1 fl (7.4-10.4); Platelet Count Result 156 k/mm3 (150-375); Red Blood Count 4.13 M/mm3 (4.6-6.20); Red Cell Distribution Width 13.2 % (11.5-14.5); White Blood Count 9.9 K/mm3 (4.5-10.0)
[2021-08-14 05:56] LABS: Anion Gap 3 mmol/L (8-16); Blood Urea Nitrogen 9 mg/dL (9-20); Calcium 8.4 mg/dL (8.4-10.2); Carbon Dioxide 29 mmol/L (22-30); Chloride 106 mmol/L (98-107); Estimated CRCL calculation 60 ml/min; Estimated Glomerular Filt Rate > 60; Glucose 102 mg/dL (65-110); Potassium 3.5 mmol/L (3.4-5.0); Sodium 138 mmol/L (137-145)
[2021-08-14 06:00] VITALS: BP 148/85; PULSE 77; RESP 18; TEMP 36.7; O2SAT 96
[2021-08-14] MEDS: ACETAMINOPHEN 500 MG TABLET PO (06:59)
[2021-08-14] MEDS: CARBIDOPA/LEVODOPA 25/250 MG TABLET 1 TABLET BY MOUTH (09:20)
[2021-08-14] MEDS: ENOXAPARIN 40 MG/0.4 ML SYRINGE SUB-Q (09:20)
[2021-08-14] MEDS: PANTOPRAZOLE 40 MG TABLET PO (09:21)
[2021-08-14] MEDS: ASPIRIN 81 MG ENTERIC TABLET PO (09:21)
[2021-08-14] MEDS: OPTI-GEN TAB 1 TABLET PO (09:21)
[2021-08-14] MEDS: LOSARTAN POTASSIUM 25 MG TABLET PO (09:21)
--- NOTE | 2021-08-14 11:10 | PM.PNGS ---
Progress Note: A&P Assessment and Plan (1) Paraesophageal hiatal hernia: Code(s): K44.9 - Diaphragmatic hernia without obstruction or gangrene Status: Chronic Assessment and Plan: transition to oral pain meds. Increase activity. Will continue full liquid diet today with the option of transitioning to soft diet tomorrow if no dysphagia. Possibly home tomorrow. 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 No dysphagia or emesis. Pain control improving. Ambulating some. Exam GI: Inspection: incision ( intact with glue) GI Palp: Yes Soft to palpation and Yes Tenderness to palpation present (GI) ( Incisional) Auscultation: normal bowel sounds Objective Data Vital Signs Vital Signs: Vital Signs - 24 hr 08/13/21 12:00 08/13/21 13:29 08/13/21 15:55 Temperature 37.3 C 37.3 C 36.9 C Pulse Rate 78 76 Respiratory Rate 16 16 Blood Pressure 116/62 118/64 Pulse Oximetry 95 96 08/13/21 19:55 08/14/21 06:00 Temperature 36.3 C L 36.7 C Pulse Rate 78 77 Respiratory Rate 16 18 Blood Pressure 127/65 148/85 H Pulse Oximetry 93 96 Intake/Output Intake/Output: Intake & Output 08/11/21 08/12/21 08/13/21 08/14/21 23:59 23:59 23:59 23:59 Intake Total 1200 3960 770 Output Total 850 800 Balance 1200 3110 -30 Meds/Results Medications: Active Medications Generic Name Dose Route Start Last Admin Trade Name Freq PRN Reason Stop Dose Admin Acetaminophen 500 mg 08/12/21 16:59 08/14/21 06:59 Acetaminophen 500 Mg Tablet PO 500 mg Q6H PRN Administration Mild Pain (1-3) or Fever Hydrocodone Bitart/Acetaminophen 1 tab 08/14/21 11:09 Hydrocodone/Acetaminophen (*Crx) 5-325 Mg Tablet PO Q4H PRN Pain Rated 4-6 Hydrocodone Bitart/Acetaminophen 1 tab 08/14/21 11:09 Hydrocodone/Acetaminophen (*Crx) 7.5-325 Mg Tablet PO Q4H PRN Pain Rated 7-10 Aspirin 81 mg 08/13/21 09:00 08/14/21 09:21 Aspirin 81 Mg Enteric Tablet PO 81 mg DAILY REBECA Administration Carbidopa/Levodopa 1 tablet 08/13/21 09:00 08/14/21 09:20 Carbidopa/Levodopa 25/250 Mg Tablet BY MOUTH 1 tablet DAILY REBECA Administration Enoxaparin Sodium 40 mg 08/13/21 09:00 08/14/21 09:20 Enoxaparin 40 Mg/0.4 Ml Syringe SUB-Q 40 mg DAILY REBECA Administration Losartan Potassium 25 mg 08/13/21 09:00 08/14/21 09:21 Losartan Potassium 25 Mg Tablet PO 25 mg QAM REBECA Administration Multivitamins/Minerals 1 tablet 08/13/21 09:00 08/14/21 09:21 Opti-Gen Tab PO 1 tablet DAILY REBECA Administration Ondansetron HCl 4 mg 08/12/21 16:59 08/13/21 10:53 Ondansetron Inj 4 Mg/2 Ml Vial IV PUSH 4 mg Q4H PRN Administration Nausea And Vomiting Pantoprazole Sodium 40 mg 08/13/21 09:00 08/14/21 09:21 Pantoprazole 40 Mg Tablet PO 40 mg QAM REBECA Administration Labs Labs: Laboratory Results - last 24 hr 08/14/21 08/14/21 05:02 05:02 WBC 9.9 RBC 4.13 L Hgb 12.8 L Hct 37.6 L MCV 91.0 MCH 31.0 MCHC 34.0 RDW 13.2 Plt Count 156 MPV 9.1 Sodium 138 Potassium 3.5 Chloride 106 Carbon Dioxide 29 Anion Gap 3 L BUN 9 D Creatinine 0.80 Estim Creat Clear Calc 60 Estimated GFR > 60 Glucose 102 Calcium 8.4 Amg Follow-up Billing Inpatient Follow-up [id number] Post-op Follow Up
[2021-08-14 15:05] VITALS: BP 141/77; PULSE 80; RESP 18; TEMP 37.2; O2SAT 97
[2021-08-14] MEDS: HYDROcodone/acetaminophen (*CRX) 7.5-325 MG TABLET 1 TAB PO (20:17)
[2021-08-14 21:19] VITALS: BP 155/87; PULSE 87; RESP 18; TEMP 36.6; O2SAT 96
[2021-08-15] MEDS: HYDROcodone/acetaminophen (*CRX) 5-325 MG TABLET 1 TAB PO (04:24)
[2021-08-15 04:46] LABS: Add Urine Microscopic? YES; Appearance Urine Clear (Clear); Bilirubin Urine Negative (Negative); Blood Urine 2+ (Negative); Color Urine Straw (Yellow); Glucose Urine UA Negative (Negative); Ketones Urine Negative (Negative); Leukocyte Esterase Ur Negative LEU/UL (Negative); Mucus Urine Rare /lpf; Nitrate Urine Negative (Negative); Protein Urine Negative (Negative); RBC Urine 21-50 /hpf (0-2); Specific Grav Ur 1.008 (1.001-1.035); Urobilinogen Urine Negative mg/dL (<2.0); WBC Urine 0-3 /hpf
[2021-08-15 05:19] LABS: Hematocrit 36.8 % (42.0-52.0); Hemoglobin 12.9 g/dL (14.0-18.0); Mean Corpuscular HGB Conc 35.1 g/dl (32-36); Mean Corpuscular Hemoglobin 30.5 pg (26-34); Mean Platelet Volume 8.9 fl (7.4-10.4); Platelet Count Result 160 k/mm3 (150-375); Red Blood Count 4.23 M/mm3 (4.6-6.20); White Blood Count 10.1 K/mm3 (4.5-10.0)
[2021-08-15 05:26] VITALS: BP 157/84; PULSE 69; RESP 18; TEMP 36.8; O2SAT 98
[2021-08-15 05:36] LABS: Anion Gap 4 mmol/L (8-16); Blood Urea Nitrogen 9 mg/dL (9-20); Calcium 8.6 mg/dL (8.4-10.2); Carbon Dioxide 28 mmol/L (22-30); Chloride 105 mmol/L (98-107); Estimated CRCL calculation 68 ml/min; Estimated Glomerular Filt Rate > 60; Glucose 101 mg/dL (65-110); Potassium 3.7 mmol/L (3.4-5.0); Sodium 137 mmol/L (137-145)
[2021-08-15] MEDS: ASPIRIN 81 MG ENTERIC TABLET PO (08:46)
[2021-08-15] MEDS: OPTI-GEN TAB 1 TABLET PO (08:46)
[2021-08-15] MEDS: LOSARTAN POTASSIUM 25 MG TABLET PO (08:46)
[2021-08-15] MEDS: CARBIDOPA/LEVODOPA 25/250 MG TABLET 1 TABLET BY MOUTH (08:46)
[2021-08-15] MEDS: ENOXAPARIN 40 MG/0.4 ML SYRINGE SUB-Q (08:46)
[2021-08-15] MEDS: PANTOPRAZOLE 40 MG TABLET PO (08:46)
--- NOTE | 2021-08-15 11:13 | PM.PNGS ---
Progress Note: A&P Assessment and Plan (1) Paraesophageal hiatal hernia: Code(s): K44.9 - Diaphragmatic hernia without obstruction or gangrene Status: Chronic Assessment and Plan: increase activity. Patient is still not ambulating much and has concerns about bringing him home. With urinary retention and still minimal activity, will plan to keep in hospital today. 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 Will start patient on Flomax. Consult Urology tomorrow morning for possible voiding trial or for follow-up in office. Subjective Subjective Date/Time Seen: 08/15/21 11:13 Interval history: Patient tolerating diet. Pain improved. Patient did have urinary retention overnight requiring straight catheterization and then Ayala catheter placement. Exam GI: Inspection: non-distended GI Palp: Yes Soft to palpation, Yes Tenderness to palpation present (GI) ( Incisional) and No Guarding due to palpation present (GI) Auscultation: normal bowel sounds Objective Data Vital Signs Vital Signs: Vital Signs - 24 hr 08/14/21 15:05 08/14/21 21:19 08/15/21 05:26 Temperature 37.2 C 36.6 C 36.8 C Pulse Rate 80 87 69 Respiratory Rate 18 18 18 Blood Pressure 141/77 H 155/87 H 157/84 H Pulse Oximetry 97 96 98 Intake/Output Intake/Output: Intake & Output 08/12/21 08/13/21 08/14/21 08/15/21 23:59 23:59 23:59 23:59 Intake Total 1200 3960 1010 860 Output Total 213 849 9866 Balance 1200 3110 210 -1640 Meds/Results Medications: Active Medications Generic Name Dose Route Start Last Admin Trade Name Freq PRN Reason Stop Dose Admin Acetaminophen 500 mg 08/12/21 16:59 08/14/21 06:59 Acetaminophen 500 Mg Tablet PO 500 mg Q6H PRN Administration Mild Pain (1-3) or Fever Hydrocodone Bitart/Acetaminophen 1 tab 08/14/21 11:09 08/15/21 04:24 Hydrocodone/Acetaminophen (*Crx) 5-325 Mg Tablet PO 1 tab Q4H PRN Administration Pain Rated 4-6 Hydrocodone Bitart/Acetaminophen 1 tab 08/14/21 11:09 08/14/21 20:17 Hydrocodone/Acetaminophen (*Crx) 7.5-325 Mg Tablet PO 1 tab Q4H PRN Administration Pain Rated 7-10 Aspirin 81 mg 08/13/21 09:00 08/15/21 08:46 Aspirin 81 Mg Enteric Tablet PO 81 mg DAILY REBECA Administration Carbidopa/Levodopa 1 tablet 08/13/21 09:00 08/15/21 08:46 Carbidopa/Levodopa 25/250 Mg Tablet BY MOUTH 1 tablet DAILY REBECA Administration Enoxaparin Sodium 40 mg 08/13/21 09:00 08/15/21 08:46 Enoxaparin 40 Mg/0.4 Ml Syringe SUB-Q 40 mg DAILY REBECA Administration Losartan Potassium 25 mg 08/13/21 09:00 08/15/21 08:46 Losartan Potassium 25 Mg Tablet PO 25 mg QAM [facility] Administration Multivitamins/Minerals 1 tablet 08/13/21 09:00 08/15/21 08:46 Opti-Gen Tab PO 1 tablet DAILY REBECA Administration Ondansetron HCl 4 mg 08/12/21 16:59 08/13/21 10:53 Ondansetron Inj 4 Mg/2 Ml Vial IV PUSH 4 mg Q4H PRN Administration Nausea And Vomiting Pantoprazole Sodium 40 mg 08/13/21 09:00 08/15/21 08:46 Pantoprazole 40 Mg Tablet PO 40 mg QAM REBECA Administration Tamsulosin HCl 0.4 mg 08/15/21 11:11 Tamsulosin Hcl 0.4 Mg Capsule PO 08/15/21 11:12 ONCE ONE Tamsulosin HCl 0.4 mg 08/16/21 09:00 Tamsulosin Hcl 0.4 Mg Capsule PO QAM [facility] Labs Labs: Laboratory Results - last 24 hr 08/15/21 08/15/21 08/15/21 04:23 05:08 05:08 WBC 10.1 H RBC 4.23 L Hgb 12.9 L Hct 36.8 L MCV 87.0 MCH 30.5
[2021-08-15] MEDS: TAMSULOSIN HCL 0.4 MG CAPSULE PO (12:14)
[2021-08-15 14:55] VITALS: BP 134/74; PULSE 72; RESP 16; TEMP 37.1; O2SAT 98
[2021-08-15 20:42] VITALS: BP 125/81; PULSE 89; RESP 20; TEMP 37.4; O2SAT 96
[2021-08-16] MEDS: ACETAMINOPHEN 500 MG TABLET PO (01:05)
[2021-08-16 03:52] VITALS: BP 143/79; PULSE 85; RESP 18; TEMP 36; O2SAT 94
[2021-08-16 05:10] LABS: Hematocrit 38.3 % (42.0-52.0); Hemoglobin 13.5 g/dL (14.0-18.0); Mean Corpuscular HGB Conc 35.2 g/dl (32-36); Mean Corpuscular Hemoglobin 30.5 pg (26-34); Mean Corpuscular Volume 86.7 fl (80-100); Mean Platelet Volume 9.5 fl (7.4-10.4); Platelet Count Result 186 k/mm3 (150-375); Red Blood Count 4.42 M/mm3 (4.6-6.20); Red Cell Distribution Width 12.8 % (11.5-14.5); White Blood Count 10.3 K/mm3 (4.5-10.0)
[2021-08-16 05:16] LABS: Anion Gap 4 mmol/L (8-16); Blood Urea Nitrogen 12 mg/dL (9-20); Calcium 8.8 mg/dL (8.4-10.2); Carbon Dioxide 27 mmol/L (22-30); Chloride 104 mmol/L (98-107); Estimated CRCL calculation 68 ml/min; Estimated Glomerular Filt Rate > 60; Glucose 97 mg/dL (65-110); Potassium 3.8 mmol/L (3.4-5.0); Sodium 135 mmol/L (137-145)
--- NOTE | 2021-08-16 08:02 | WPDURCON ---
Assessment and Plan Assessment and plan (1) Postoperative urinary retention: Code(s): N99.89 - Other postprocedural complications and disorders of genitourinary system; R33.8 - Other retention of urine Status: Acute Assessment and Plan: Postop urinary retention resulting from underlying BPH complicated by relative immobility, analgesics/anesthetics, etc. Discharge with indwelling Ayala to leg bag during the day and bedside bag at night Discharge on tamsulosin 0.4 mg q.h.s. My office will contact patient regarding follow-up for voiding trial later this week. Urology Consult Note HPI Date Seen: 08/16/21 Requesting Physician: Mumtaz Suero MD Primary Care Provider: Demarco Hylton MD Consult Narrative Narrative: Faustino Yates is a 86 year old male who is well known to Dr. Gomez with a longstanding history of underlying, as yet untreated, BPH and chronic PSA elevation. He has now developed urinary retention following a Griselda fundoplication. With replacement of urethral catheter approximately 700 cc of urine was obtained. He is tolerating the catheter well Review of Systems Cardiovascular: Cardiovascular: Denies chest pain, Denies lightheadedness, Denies palpitations and Denies dyspnea Respiratory: Respiratory: Denies dyspnea Gastrointestinal: Gastrointestinal: Denies diarrhea, Denies nausea and Denies vomiting Genitourinary: Genitourinary: Denies hematuria and Denies dysuria Endocrine: Endocrine: Denies palpitations PMFSH Past Medical History Medical History GERD (gastroesophageal reflux disease) Hiatal hernia HTN (hypertension) Movement disorder Restless leg syndrome Sore throat Surgical History Surgical History H/O colonoscopy 04/12/2021 History of tonsillectomy Hx of appendectomy S/P thyroid biopsy Status post hernia repair Family History Family History Sibling Family history of thyroid disease Patient's sister is in good health Patient's brother is in good health Son Diabetes mellitus Grandparent Throat cancer Social History Social History Smoking status: Never smoker Second hand tobacco smoke exposure: No Alcohol intake: current Drinks per week: 3 Alcohol use details: 1 beer per day Substance use: never Substance use type: does not use Living arrangements: with friend(s) Additional living arrangements comments: SIGNIFICANT OTHER Gender identity (if verbalized by the patient): Male Sexual Orientation (if Verbalized by the Patient): Straight or Heterosexual Spiritual care concerns: No Meds Home Medications and Allergies Home Medications Medication Instructions Recorded Confirmed Type omega 8-gdj-smv-fish oil 100 1 cap PO DAILY 10/31/19 08/12/21 History mg-160 mg-1,000 mg capsule vit C 250 mg-vit E 90 mg-zinc 40 1 tablet PO DAILY 10/31/19 08/12/21 History mg-copper 1 ga-evolsu-gcumcg capsule aspirin [Aspir-81] 81 mg PO DAILY 06/08/21 08/12/21 History losartan 25 mg PO QAM 06/08/21 08/12/21 History fypvddjb-wtr-LN-lycopen-lutein 1 tablet PO DAILY 06/08/21 08/12/21 History [Centrum Silver Men] carbidopa 25 mg-levodopa 250 mg See Rx Instructions .ROUTE 06/09/21 08/12/21 Rx tablet .COMPLEX #90 tablet esomeprazole magnesium 40 mg 40 mg PO DAILY #90 cap 07/20/21 08/12/21 Rx capsule,delayed release Allergies Allergy/AdvReac Type Severity Reaction Status Date / Time No Known Allergies Allergy Verified 08/12/21 09:41 Vital Signs Vital Signs - 24 hr 08/15/21 14:55 08/15/21 20:42 08/16/21 03:52 Temperature 98.8 F 99.4 F 96.8 F L Pulse Rate 72 89 85 Respiratory Rate 16 20 18 Blood Pressure 134/74 125/81 143/79 H Pulse Oximetry 98 96 94 Exam Const: General:
[2021-08-16] MEDS: ASPIRIN 81 MG ENTERIC TABLET PO (08:31)
[2021-08-16] MEDS: ENOXAPARIN 40 MG/0.4 ML SYRINGE SUB-Q (08:31)
[2021-08-16] MEDS: OPTI-GEN TAB 1 TABLET PO (08:31)
[2021-08-16] MEDS: PANTOPRAZOLE 40 MG TABLET PO (08:31)
[2021-08-16] MEDS: LOSARTAN POTASSIUM 25 MG TABLET PO (08:31)
[2021-08-16] MEDS: TAMSULOSIN HCL 0.4 MG CAPSULE PO (08:31)
--- NOTE | 2021-08-16 09:10 | PM.DS ---
DS: Admitting Diagnosis Discharge Date 08/16/2021 Admitting Diagnosis hiatal hernia, gastroesophageal reflux disease DS: Discharge Diagnosis Discharge Diagnosis (1) Paraesophageal hiatal hernia: Code(s): K44.9 - Diaphragmatic hernia without obstruction or gangrene Status: Chronic (2) GERD with esophagitis: Code(s): K21.00 - Gastro-esophageal reflux disease with esophagitis, without bleeding Status: Chronic (3) Postoperative urinary retention: Code(s): N99.89 - Other postprocedural complications and disorders of genitourinary system; R33.8 - Other retention of urine Status: Acute DS: Summary Hospital Course Reason for hospitalization: postoperative recovery after hiatal hernia repair Hospital Course: this is an 86-year-old man who presented for laparoscopic hiatal hernia repair and Griselda fundoplication on 08/12/2021. Surgery was uncomplicated and he was admitted to the hospital postoperatively for recovery. He was initially started on clear liquid diet and had a Ayala in place. His diet was slowly advanced to full liquids over the 1st couple days. His Ayala catheter was removed on 08/14/2021. He was unable to urinate and was straight cathed once but still had problems with urinary retention and eventually had to have Ayala replaced on 08/15/2021. He was able to be advanced to a soft diet. Urology was consulted for urinary retention and he was started on Flomax. His pain was better controlled and Ayala was left in place. He was discharged on 08/16/2021 with Ayala and leg bag. Status at Discharge Functional status at discharge: independent ambulation Overall status at discharge: patient is progressing back to baseline Time Spent with Patient Time attestation: Total time spent providing and/or coordinating discharge services: Time spent: Less than 30 minutes Exam GI: Inspection: non-distended and incision ( Intact with glue) GI Palp: Yes Soft to palpation and Yes Tenderness to palpation present (GI) ( incisional) Auscultation: normal bowel sounds DS: Data Data Completed and Pending Pending studies at discharge: Pending at discharge 08/12/21 14:05 Surgical [PTH] Routine Labs on day of discharge: Labs from last 24 hours 08/16/21 08/16/21 04:44 04:44 WBC 10.3 H RBC 4.42 L Hgb 13.5 L Hct 38.3 L MCV 86.7 MCH 30.5 MCHC 35.2 RDW 12.8 Plt Count 186 MPV 9.5 Sodium 135 L Potassium 3.8 Chloride 104 Carbon Dioxide 27 Anion Gap 4 L BUN 12 Creatinine 0.70 Estim Creat Clear Calc 68 Estimated GFR > 60 Glucose 97 Calcium 8.8 Discharge Plan Discharge Attending physician on discharge: Mumtaz Suero Consulting providers: Billy Gomez Discharging Clinician: Charlie Justice Patient Disposition: Home, Self-Care Activity: may shower, no straining and other - see discharge instructions Diet: other - see discharge instructions Wound Care Instructions: other - see discharge instructions Discharge Instructions: patient may shower, no bathing or soaking for 2 weeks no lifting greater than 10 lb for the next 2 weeks maintain a soft or full liquid diet for the next 2 weeks, food should be small bite size and easy to chew and swallow call office for increasing pain, nausea or vomiting, or other problems with incisions Patient Instructions: Antibiotic Form Stand Alone Forms: General Discharge Information Follow-up/Referrals: Mumtaz Suero MD [Physician] - Keep Reg. Scheduled Appt. Discharge Medications: New hydrocodone-acetaminophen 5-325 mg tablet 1 tablet PO Q4H PRN (Reason: pain) Qty: 10 RF: 0 tamsulosin [Flomax] 0.4 mg capsule 0.4 mg PO HS Qty: 30 RF: 0 Continued PreserVision AREDS-2 280-329-09-1 st-iviz-bg-mg capsule 1 tablet PO DAILY RF: 0 Fish Oil 100-160-1,000 mg capsule 1 cap PO DAILY RF: 0 aspirin [Aspir-81] 81 mg Tablet,Delayed Release (
[2021-08-16] MEDS: polyethylene glycoL 3350 17 GM POWD.PACK PO (09:51)
== END 2021-08-16 12:10 | disposition home or self-care (01) | DRG 328 ==
LOC: ANHSURGERY 16:09 → ANH2MED 08-16 09:16
PROVIDERS: Admitting Provider Surgery; PCP Family Medicine; Visit Provider Surgery
PROC: 0DV44ZZ Restriction of Esophagogastric Junction, Percutaneous Endoscopic Approach (ICD-10-PCS; CPT 43281; principal; 2021-08-12 11:30)
DX: K44.9 Diaphragmatic hernia without obstruction or gangrene (principal); K21.00 Gastro-esophageal reflux disease with esophagitis, without bleeding; K22.70 Barrett's esophagus without dysplasia; N99.89 Other postprocedural complications and disorders of genitourinary system; R33.8 Other retention of urine; Z23 Encounter for immunization; N40.0 Benign prostatic hyperplasia without lower urinary tract symptoms; G25.81 Restless legs syndrome; Z90.49 Acquired absence of other specified parts of digestive tract
CPT/HCPCS: 36415; 80048; 81001; 85027; 88302; 90471; 90653; A9270; C1713; G0008; J0690; J1100; J1170; J1650; J1741; J1885; J2250; J2270; J2405; J2704; J2710; J3010; J7120

== ENCOUNTER → 2021-09-01 02:20 | Outpatient (CLI) | payer MEDICARE, SELFPAY ==
[2021-09-01 18:47] LABS: SARS-CoV-2 RNA PCR Negative
== END ==
PROVIDERS: PCP Family Medicine; Visit Provider Physician Assistant
DX: R53.83 Other fatigue (principal); J02.9 Acute pharyngitis, unspecified; Z20.822 Contact with and (suspected) exposure to COVID-19
CPT/HCPCS: C9803; U0003; U0005

== ENCOUNTER 2021-09-24 11:49 | Outpatient (CLI) | payer MEDICARE, SELFPAY ==
--- NOTE | ~2021-09-24 | XR_ITS ---
EXAMINATION: XR chest 2V DATE: 09/24/2021 12:22 INDICATION: Cough, abnormal blood gas level TECHNIQUE: PA and lateral views of the chest are obtained. COMPARISON: 06/08/2021 FINDINGS: The lungs are free of acute opacities. There is no pleural effusion or pneumothorax. The ca rdiomediastinal silhouette is normal. There are bridging osteophytes at multiple levels in the spine, consistent with diffuse idiopathic skeletal hyperostosis (DISH). IMPRESSION: 1. No acute cardiopulmonary abnormality. Reviewed, dictated and finalized at location A. Y MAKER
[2021-09-24 12:18] LABS: Basophils Absolute Auto 0.1 K/mm3 (0.0-0.1); Basophils Percent Auto 0.5 % (0.2-1.2); Eosinophils Absolute Auto 0.2 K/mm3 (0-0.3); Eosinophils Percent Auto 2.4 % (0-4.4); Hematocrit 42.9 % (42.0-52.0); Hemoglobin 14.3 g/dL (14.0-18.0); Immature Granulocyte Absolute 0.05 K/mm3 (0.00-0.031); Immature Granulocyte Percent A 0.5 % (0-0.5); Lymphocytes Percent Auto 17.2 % (18.3-44.2); Mean Corpuscular HGB Conc 33.3 g/dl (32-36); Mean Corpuscular Volume 90.1 fl (80-100); Mean Platelet Volume 8.5 fl (7.4-10.4); Monocytes Percent Auto 10.8 % (2.6-8.5); Neutrophils Absolute Auto 6.4 K/mm3 (1.3-6.7); Neutrophils Percent Auto 68.6 % (45.5-73.1); Platelet Count Result 290 k/mm3 (150-375); Red Blood Count 4.76 M/mm3 (4.6-6.20); Red Cell Distribution Width 13.5 % (11.5-14.5); White Blood Count 9.3 K/mm3 (4.5-10.0)
[2021-09-24 12:28] LABS: Alanine Aminotransferase 10 U/L (4-50); Albumin Level 4.1 g/dL (3.5-5.1); Alkaline Phosphatase 83 U/L (38-126); Anion Gap 9 mmol/L (8-16); Aspartate Amino Transferase 21 U/L (17-59); Bilirubin,Total 0.6 mg/dL (0.2-1.3); Blood Urea Nitrogen 22 mg/dL (9-20); Calcium 9.3 mg/dL (8.4-10.2); Carbon Dioxide 28 mmol/L (22-30); Chloride 100 mmol/L (98-107); Estimated Glomerular Filt Rate > 60; Glucose 92 mg/dL (65-110); Potassium 4.1 mmol/L (3.4-5.0); Sodium 137 mmol/L (137-145)
[2021-09-24 12:31] LABS: Add Urine Microscopic? YES; Appearance Urine Cloudy (Clear); Bilirubin Urine Negative (Negative); Blood Urine Negative (Negative); Color Urine Amber (Yellow); Glucose Urine UA Negative (Negative); Ketones Urine Trace mg/dL (Negative); Leukocyte Esterase Ur Negative LEU/UL (NEGATIVE); Mucus Urine Heavy /lpf; Nitrate Urine Negative (Negative); Protein Urine 1+ mg/dL (Negative); Specific Grav Ur 1.027 (1.001-1.035); Squamous Epithelial Cell Urine Rare /hpf (Few)
== END 2021-09-24 11:50 | disposition home or self-care (01) ==
PROVIDERS: PCP Family Medicine; Visit Provider Physician Assistant
DX: R10.13 Epigastric pain (principal); R53.1 Weakness; R53.83 Other fatigue; I10 Essential (primary) hypertension; R79.81 Abnormal blood-gas level
CPT/HCPCS: 36415; 71046; 80053; 81001; 85025; 87086

== ENCOUNTER 2021-11-25 13:10 | Outpatient (CLI) | payer MEDICARE, SELFPAY ==
[2021-11-25 13:59] LABS: Add Urine Microscopic? YES; Appearance Urine Clear (Clear); Bacteria Urine Trace /hpf; Bilirubin Urine Negative (Negative); Blood Urine Negative (Negative); Color Urine Yellow (Yellow); Glucose Urine UA Negative (Negative); Ketones Urine Negative (Negative); Leukocyte Esterase Ur Negative LEU/UL (NEGATIVE); Mucus Urine Rare /lpf; Nitrate Urine Negative (Negative); Protein Urine Negative (Negative); RBC Urine 0-2 /hpf (0-2); Specific Grav Ur 1.021 (1.001-1.035); Urobilinogen Urine Negative mg/dL (<2.0); WBC Urine 0-3 /hpf (0-3)
== END 2021-11-25 13:11 | disposition home or self-care (01) ==
PROVIDERS: PCP Family Medicine; Visit Provider Physician Assistant
DX: R10.13 Epigastric pain (principal); R31.9 Hematuria, unspecified
CPT/HCPCS: 81001; 87086

== ENCOUNTER 2022-05-02 08:41 | Outpatient (CLI) | payer MEDICARE, SELFPAY ==
[2022-05-02 09:03] LABS: Basophils Absolute Auto 0.1 K/mm3 (0.0-0.1); Basophils Percent Auto 0.9 % (0.2-1.2); Eosinophils Absolute Auto 0.3 K/mm3 (0-0.3); Eosinophils Percent Auto 3.7 % (0-4.4); Hematocrit 42.1 % (42.0-52.0); Hemoglobin 14.1 g/dL (14.0-18.0); Immature Granulocyte Absolute 0.03 K/mm3 (0.00-0.031); Immature Granulocyte Percent A 0.4 % (0-0.5); Lymphocytes Absolute Auto 2.09 K/mm3 (0.9-3.2); Lymphocytes Percent Auto 27.3 % (18.3-44.2); Mean Corpuscular HGB Conc 33.5 g/dl (32-36); Mean Corpuscular Hemoglobin 29.8 pg (26-34); Mean Platelet Volume 8.4 fl (7.4-10.4); Monocytes Absolute Auto 0.6 K/mm3 (0.1-0.6); Monocytes Percent Auto 8.4 % (2.6-8.5); Neutrophils Absolute Auto 4.5 K/mm3 (1.3-6.7); Neutrophils Percent Auto 59.3 % (45.5-73.1); Platelet Count Result 243 k/mm3 (150-375); Red Blood Count 4.73 M/mm3 (4.6-6.20); Red Cell Distribution Width 13.2 % (11.5-14.5); White Blood Count 7.7 K/mm3 (4.5-10.0)
[2022-05-02 09:12] LABS: Albumin Level 3.8 g/dL (3.5-5.1); Alkaline Phosphatase 70 U/L (38-126); Anion Gap 5 mmol/L (8-16); Aspartate Amino Transferase 22 U/L (17-59); Blood Urea Nitrogen 18 mg/dL (9-20); Calcium 8.5 mg/dL (8.4-10.2); Carbon Dioxide 29 mmol/L (22-30); Chloride 103 mmol/L (98-107); Cholesterol 178 mg/dL (0-200); Estimated Glomerular Filt Rate > 60; Glucose 93 mg/dL (65-110); HDL Direct 37 mg/dL; Potassium 4.1 mmol/L (3.4-5.0); Sodium 137 mmol/L (137-145); Triglycerides 86 mg/dL (<150)
[2022-05-02 09:16] LABS: Alanine Aminotransferase < 6 U/L (6-50)
[2022-05-02 09:23] LABS: LDL Cholesterol Direct 99 mg/dL
[2022-05-02 10:20] LABS: Folic Acid 19.9 ng/mL (2.76->20)
== END 2022-05-02 08:42 | disposition home or self-care (01) ==
LOC: ANHLAB 08:46
PROVIDERS: PCP Family Medicine; Visit Provider Physician Assistant
DX: R53.83 Other fatigue (principal); K21.9 Gastro-esophageal reflux disease without esophagitis; G25.9 Extrapyramidal and movement disorder, unspecified; E78.5 Hyperlipidemia, unspecified; E04.1 Nontoxic single thyroid nodule; I10 Essential (primary) hypertension
CPT/HCPCS: 36415; 80053; 80061; 82607; 82746; 84443; 85025

== ENCOUNTER 2022-09-06 11:54 | Outpatient (CLI) | payer MEDICARE, SELFPAY ==
[2022-09-06 12:16] LABS: Basophils Absolute Auto 0.1 K/mm3 (0.0-0.1); Basophils Percent Auto 0.8 % (0.2-1.2); Eosinophils Absolute Auto 0.2 K/mm3 (0-0.3); Eosinophils Percent Auto 2.7 % (0-4.4); Hematocrit 43.3 % (42.0-52.0); Hemoglobin 14.4 g/dL (14.0-18.0); Immature Granulocyte Absolute 0.03 K/mm3 (0.00-0.031); Immature Granulocyte Percent A 0.4 % (0-0.5); Lymphocytes Absolute Auto 1.62 K/mm3 (0.9-3.2); Lymphocytes Percent Auto 19.5 % (18.3-44.2); Mean Corpuscular HGB Conc 33.3 g/dl (32-36); Mean Corpuscular Hemoglobin 30.9 pg (26-34); Mean Corpuscular Volume 92.9 fl (80-100); Mean Platelet Volume 8.5 fl (7.4-10.4); Monocytes Absolute Auto 0.7 K/mm3 (0.1-0.6); Monocytes Percent Auto 8.9 % (2.6-8.5); Neutrophils Absolute Auto 5.6 K/mm3 (1.3-6.7); Neutrophils Percent Auto 67.7 % (45.5-73.1); Platelet Count Result 235 k/mm3 (150-375); Red Blood Count 4.66 M/mm3 (4.6-6.20); Red Cell Distribution Width 13.3 % (11.5-14.5); White Blood Count 8.3 K/mm3 (4.5-10.0)
[2022-09-06 12:24] LABS: Appearance Urine Clear (Clear); Bilirubin Urine Negative (Negative); Blood Urine Negative (Negative); Color Urine Yellow (Yellow); Glucose Urine UA Negative (Negative); Ketones Urine 1+ mg/dL (Negative); Leukocyte Esterase Ur Negative LEU/UL (NEGATIVE); Nitrate Urine Negative (Negative); Protein Urine 1+ mg/dL (Negative); Specific Grav Ur 1.025 (1.001-1.035); pH Urine 5.5 (5.0-9.0)
[2022-09-06 12:26] LABS: Alanine Aminotransferase 15 U/L (6-50); Albumin Level 3.9 g/dL (3.5-5.1); Alkaline Phosphatase 65 U/L (38-126); Anion Gap 3 mmol/L (8-16); Aspartate Amino Transferase 23 U/L (17-59); Bilirubin,Total 0.7 mg/dL (0.2-1.3); Blood Urea Nitrogen 19 mg/dL (9-20); Calcium 8.9 mg/dL (8.4-10.2); Carbon Dioxide 29 mmol/L (22-30); Chloride 104 mmol/L (98-107); Estimated Glomerular Filt Rate > 60; Glucose 86 mg/dL (65-110); Potassium 4.6 mmol/L (3.4-5.0); Sodium 136 mmol/L (137-145)
[2022-09-06 12:43] LABS: Calcium Oxalate Crystals Urine Present /hpf; Mucus Urine Heavy /lpf
[2022-09-06 12:47] LABS: Add Urine Microscopic? YES
== END 2022-09-06 11:55 | disposition home or self-care (01) ==
LOC: ANHLAB 11:57
PROVIDERS: PCP Family Medicine; Visit Provider Physician Assistant
DX: E04.1 Nontoxic single thyroid nodule (principal); I10 Essential (primary) hypertension; E78.5 Hyperlipidemia, unspecified; R63.4 Abnormal weight loss
CPT/HCPCS: 36415; 80053; 81001; 84443; 85025

== ENCOUNTER 2022-09-21 14:27 | Outpatient (CLI) | payer MEDICARE, SELFPAY ==
--- NOTE | ~2022-09-21 | CT_ITS ---
EXAMINATION: CT abdomen pelvis wo con DATE: 09/21/2022 14:49 INDICATION: Early satiety. TECHNIQUE: Computed tomography (CT) of the abdomen and pelvis was performed without intravenous contr ast. Automated exposure control and iterative reconstruction technique were employed. Exam dose: 319 .54 mGy-cm total exam DLP. COMPARISON: 02/15/2021 CT abdomen pelvis FINDINGS: Sliding hiatal hernia is noted, containing fat and small portion of the proximal stomach co mpared to the large paraesophageal hernia noted on 02/15/2021. Medial and posterior fat-containing left foramen of Bochdalek hernias. The lung bases are clear. Normal heart size. Coronary artery calcification. No pericardial or pleural effusion. The liver, gallbladder, bile ducts, spleen, pancreas, pancreatic duct and adrenal glands are unremark able. Occasional renal cysts, largest situated on the left, measuring up to 2.1 cm. No suspicious renal mas s lesion is noted. No ureteral calculus or hydroureteronephrosis. There is massive prostatomegaly wit h mild to moderate diffuse urinary bladder wall thickening. There is atherosclerotic calcification but normal caliber of the abdominal aorta and iliac arteries. No intraperitoneal or retroperitoneal or pelvic mass lesion or adenopathy or ascites. No bowel obstruction, bowel wall thickening, pneumatosis or intraperitoneal free air. Small fat-containing umbilical hernia. Prominent degenerative change at the apophyseal joints with associated grade 1 anterolisthesis at L4- 5. There is prominent degenerative disc disease throughout the lumbar and lumbosacral spine. Diffuse idiopathic skeletal hyperostosis of the thoracolumbar spine. No suspicious osteolytic lesion. Occasional scattered sclerotic bone lesions, most likely due to bone islands. Osteosclerotic metastatic disease from prostate cancer is not excluded. IMPRESSION: Sliding hiatal hernia Foramen of Bochdalek fat-containing left hernias Renal cysts Reviewed, dictated and finalized at Location A. Reviewed, dictated and finalized at location B. SION MANAGER
== END 2022-09-21 14:28 | disposition home or self-care (01) ==
LOC: ANHIMG 14:29
PROVIDERS: PCP Family Medicine; Visit Provider Physician Assistant
DX: K44.9 Diaphragmatic hernia without obstruction or gangrene (principal); N28.1 Cyst of kidney, acquired; R68.81 Early satiety
CPT/HCPCS: 74176

== ENCOUNTER 2022-11-04 12:23 | Outpatient (CLI) | payer MEDICARE, SELFPAY ==
[2022-11-04 12:47] LABS: Appearance Urine Clear (Clear); Bilirubin Urine Negative (Negative); Blood Urine Negative (Negative); Color Urine Yellow (Yellow); Glucose Urine UA Negative (Negative); Ketones Urine Trace mg/dL (Negative); Leukocyte Esterase Ur Negative LEU/UL (NEGATIVE); Nitrate Urine Negative (Negative); Protein Urine Trace mg/dL (Negative); Specific Grav Ur 1.025 (1.001-1.035); Urobilinogen Urine 0.2 mg/dL (<2.0); pH Urine 5.5 (5.0-9.0)
[2022-11-04 12:59] LABS: Add Urine Microscopic? NO
[2022-11-04 13:12] LABS: Mucus Urine Rare /lpf; Squamous Epithelial Cell Urine Rare /hpf (Few); WBC Urine 0-3 /hpf (0-3)
== END 2022-11-04 12:24 | disposition home or self-care (01) ==
PROVIDERS: PCP Family Medicine; Visit Provider Physician Assistant
DX: N39.0 Urinary tract infection, site not specified (principal); R31.9 Hematuria, unspecified
CPT/HCPCS: 81003; 87086

== ENCOUNTER 2023-06-01 07:56 | Outpatient (CLI) | payer MEDICARE, SELFPAY ==
[2023-06-01 08:20] LABS: Basophils Percent Auto 0.4 % (0.2-1.2); Eosinophils Percent Auto 12.8 % (0-4.4); Hematocrit 41.3 % (42.0-52.0); Hemoglobin 13.6 g/dL (14.0-18.0); Immature Granulocyte Absolute 0.03 K/mm3 (0.00-0.031); Immature Granulocyte Percent A 0.4 % (0-0.5); Lymphocytes Absolute Auto 2.41 K/mm3 (0.9-3.2); Lymphocytes Percent Auto 32.4 % (18.3-44.2); Mean Corpuscular HGB Conc 32.9 g/dl (32-36); Mean Corpuscular Hemoglobin 30.7 pg (26-34); Mean Corpuscular Volume 93.2 fl (80-100); Mean Platelet Volume 8.2 fl (7.4-10.4); Monocytes Absolute Auto 0.5 K/mm3 (0.1-0.6); Monocytes Percent Auto 7.1 % (2.6-8.5); Neutrophils Absolute Auto 3.5 K/mm3 (1.3-6.7); Neutrophils Percent Auto 46.9 % (45.5-73.1); Platelet Count Result 229 k/mm3 (150-375); Red Blood Count 4.43 M/mm3 (4.6-6.20); Red Cell Distribution Width 13.4 % (11.5-14.5); White Blood Count 7.4 K/mm3 (4.5-10.0)
[2023-06-01 08:41] LABS: Alanine Aminotransferase 17 U/L (6-50); Albumin Level 3.7 g/dL (3.5-5.1); Alkaline Phosphatase 64 U/L (38-126); Anion Gap 3 mmol/L (8-16); Aspartate Amino Transferase 24 U/L (17-59); Bilirubin,Total 0.9 mg/dL (0.2-1.3); Blood Urea Nitrogen 18 mg/dL (9-20); Calcium 8.8 mg/dL (8.4-10.2); Carbon Dioxide 28 mmol/L (22-30); Chloride 103 mmol/L (98-107); Cholesterol 154 mg/dL (0-200); Estimated Glomerular Filt Rate > 60; Glucose 93 mg/dL (65-110); HDL Direct 41 mg/dL; Potassium 4.2 mmol/L (3.4-5.0); Sodium 134 mmol/L (137-145); Triglycerides 69 mg/dL (<150)
[2023-06-01 08:52] LABS: LDL Cholesterol Direct 91 mg/dL
== END 2023-06-01 07:57 | disposition home or self-care (01) ==
PROVIDERS: PCP Family Medicine; Visit Provider Physician Assistant
DX: I10 Essential (primary) hypertension (principal)
CPT/HCPCS: 36415; 80053; 80061; 84443; 85025

== ENCOUNTER 2023-08-16 11:30 | Outpatient (NON) | payer MEDICARE, SELFPAY ==
[2023-08-23 21:12] LABS: Calprotectin, Stool 188 mcg/g; Pancreatic Elastase, Stool 182 mcg/g
== END 2023-08-16 11:31 | disposition home or self-care (01) ==
PROVIDERS: PCP Family Medicine; Visit Provider Internal Medicine Gastroenterology
DX: R19.4 Change in bowel habit (principal); R63.4 Abnormal weight loss
CPT/HCPCS: 82653; 83993

== ENCOUNTER 2024-01-04 08:21 | Outpatient (CLI) | payer MEDICARE, SELFPAY ==
[2024-01-04 08:57] LABS: Basophils Absolute Auto 0.1 K/mm3 (0.0-0.1); Basophils Percent Auto 0.8 % (0.2-1.2); Eosinophils Absolute Auto 0.3 K/mm3 (0-0.3); Eosinophils Percent Auto 3.4 % (0-4.4); Hematocrit 42.8 % (42.0-52.0); Hemoglobin 14.1 g/dL (14.0-18.0); Immature Granulocyte Absolute 0.03 K/mm3 (0.00-0.031); Immature Granulocyte Percent A 0.4 % (0-0.5); Lymphocytes Absolute Auto 2.38 K/mm3 (0.9-3.2); Lymphocytes Percent Auto 31.2 % (18.3-44.2); Mean Corpuscular HGB Conc 32.9 g/dl (32-36); Mean Corpuscular Hemoglobin 30.2 pg (26-34); Mean Corpuscular Volume 91.6 fl (80-100); Mean Platelet Volume 8.7 fl (7.4-10.4); Monocytes Absolute Auto 0.7 K/mm3 (0.1-0.6); Monocytes Percent Auto 8.8 % (2.6-8.5); Neutrophils Absolute Auto 4.2 K/mm3 (1.3-6.7); Neutrophils Percent Auto 55.4 % (45.5-73.1); Platelet Count Result 225 k/mm3 (150-375); Red Blood Count 4.67 M/mm3 (4.6-6.20); Red Cell Distribution Width 13.7 % (11.5-14.5); White Blood Count 7.6 K/mm3 (4.5-10.0)
[2024-01-04 14:01] LABS: Alanine Aminotransferase 16 U/L (6-50); Albumin Level 3.9 g/dL (3.5-5.1); Alkaline Phosphatase 71 U/L (38-126); Anion Gap 1 mmol/L (8-16); Aspartate Amino Transferase 26 U/L (17-59); Bilirubin,Total 0.8 mg/dL (0.2-1.3); Blood Urea Nitrogen 20 mg/dL (9-20); Calcium 9.2 mg/dL (8.4-10.2); Carbon Dioxide 33 mmol/L (22-30); Chloride 104 mmol/L (98-107); Estimated Glomerular Filt Rate > 60; Glucose 93 mg/dL (65-110); Potassium 4.3 mmol/L (3.4-5.0); Sodium 138 mmol/L (137-145)
[2024-01-05 10:59] LABS: Iron 119 ug/dL (49-181)
[2024-01-05 11:11] LABS: Percent Iron Saturation 47 % (20-50)
[2024-01-05 13:06] LABS: Folic Acid > 20.0 ng/mL (2.76->20)
== END 2024-01-04 08:22 | disposition home or self-care (01) ==
LOC: ANHLAB 08:26
PROVIDERS: PCP Family Medicine; Visit Provider Physician Assistant
DX: D64.9 Anemia, unspecified (principal); I10 Essential (primary) hypertension; Z87.19 Personal history of other diseases of the digestive system; Z98.890 Other specified postprocedural states
CPT/HCPCS: 36415; 80053; 82607; 82728; 82746; 83540; 83550; 85025

== ENCOUNTER 2024-06-27 13:51 | Outpatient (CLI) | payer MEDICARE, SELFPAY ==
[2024-06-27 14:31] LABS: Basophils Absolute Auto 0.1 K/mm3 (0.0-0.1); Basophils Percent Auto 0.9 % (0.2-1.2); Eosinophils Absolute Auto 0.2 K/mm3 (0-0.3); Eosinophils Percent Auto 2.9 % (0-4.4); Hematocrit 40.8 % (42.0-52.0); Hemoglobin 13.5 g/dL (14.0-18.0); Immature Granulocyte Absolute 0.03 K/mm3 (0.00-0.031); Immature Granulocyte Percent A 0.4 % (0-0.5); Lymphocytes Absolute Auto 2.29 K/mm3 (0.9-3.2); Lymphocytes Percent Auto 29.1 % (18.3-44.2); Mean Corpuscular HGB Conc 33.1 g/dl (32-36); Mean Corpuscular Hemoglobin 30.8 pg (26-34); Mean Corpuscular Volume 93.2 fl (80-100); Mean Platelet Volume 8.7 fl (7.4-10.4); Monocytes Absolute Auto 0.8 K/mm3 (0.1-0.6); Monocytes Percent Auto 9.8 % (2.6-8.5); Neutrophils Absolute Auto 4.5 K/mm3 (1.3-6.7); Neutrophils Percent Auto 56.9 % (45.5-73.1); Platelet Count Result 199 k/mm3 (150-375); Red Blood Count 4.38 M/mm3 (4.6-6.20); Red Cell Distribution Width 13.3 % (11.5-14.5); White Blood Count 7.9 K/mm3 (4.5-10.0)
[2024-06-27 15:10] LABS: Alanine Aminotransferase 13 U/L (6-50); Albumin Level 3.8 g/dL (3.5-5.1); Alkaline Phosphatase 68 U/L (38-126); Anion Gap 7 mmol/L (4-12); Aspartate Amino Transferase 23 U/L (17-59); Bilirubin,Total 0.4 mg/dL (0.2-1.3); Blood Urea Nitrogen 21 mg/dL (9-20); Calcium 8.7 mg/dL (8.4-10.2); Carbon Dioxide 31 mmol/L (22-30); Chloride 100 mmol/L (98-107); Estimated Glomerular Filt Rate > 60; Glucose 90 mg/dL (65-110); Potassium 4.2 mmol/L (3.4-5.0); Sodium 138 mmol/L (137-145)
[2024-06-27 15:23] LABS: Add Urine Microscopic? YES; Appearance Urine Clear (Clear); Bacteria Urine None Seen /hpf; Bilirubin Urine Negative (Negative); Blood Urine Negative (Negative); Color Urine Yellow (Yellow); Glucose Urine UA Negative (Negative); Ketones Urine Negative (Negative); Leukocyte Esterase Ur 1+ LEU/UL (Negative); Need Manual Microscopic Reviewed; Nitrate Urine Negative (Negative); Non Pathogenic Casts 0-2; Protein Urine Negative (Negative); RBC Urine 0-2 /hpf (0-2); Specific Grav Ur 1.025 (1.001-1.035); Squamous Epithelial Cell Urine None Seen /hpf (Few); WBC Urine 0-5 /hpf (0-3); pH Urine 5.5 (5.0-9.0)
== END 2024-06-27 13:52 | disposition home or self-care (01) ==
LOC: ANHLAB 13:56
PROVIDERS: PCP Family Medicine; Visit Provider Physician Assistant
DX: E78.5 Hyperlipidemia, unspecified (principal); I10 Essential (primary) hypertension; N40.0 Benign prostatic hyperplasia without lower urinary tract symptoms; D64.9 Anemia, unspecified
CPT/HCPCS: 36415; 80053; 81001; 84443; 85025

== ENCOUNTER 2025-01-02 13:54 | Outpatient (CLI) | payer MEDICARE, SELFPAY ==
--- OUTSIDE RECORDS SUMMARY | 2025-01-02 14:20 | XMS_ITS | Continuity of Care Document ---
Author Organization [facility] Address [address] [place] [address] Phone Care Team Providers Care Recreational Vehicle Resort Manager Name Role Phone Shantanu Dodson MD Unavailable Unavailable Medications Medication Instructions Dosage Effective Dates (start - stop) Status Comments carbidopa-levodopa 25 mg-250 mg Tab take 1 tablet by oral route every evening - Active azithromycin 250 mg Tab (Z-tomas) 2 tabs day 1, the 1 tab days 2-5 - No Longer Active Procedures Procedure Date Offic/outpt E&m [facility] 1 Erx Prescription Sent Advance Directives Directive Yes / No Effective Date File Name No Information Encounters Encounter Description Practice Location Reason(s) For Visit Diagnoses Date Provider Providers Copied on Encounter Offic/outpt E&m [facility], [address], [place], [place], [id number], [place] tel:[phone] [facility] OTHER ACUTE SINUSITISPh aryngitis, Acute [place]. [address], [id number], [place]. tel:[phone] Referring Provider: Shantanu Dodson MD, [address], [address]. tel:[phone] Family History Family Member Type Diagnosis Age At Onset No Information Payers Payer name Insurance type Covered democrat ID Authoriza tion(s) Medicare MB [id number] Social History Type Description Quantity Date Captured Comments Sex Male Smoking Status No Information Vital Signs Date / Time: Height Weight BMI Pulse Rate Blood Pressure Temperature Respiratory Rate Body Surface Area Head Circumference Head Circ. Percentile Wt./Leo. Percentile BMI percentile Pulse Ox Inhaled Ox Sep-23 -2011 6:05 PM 64 /min 132/80 mm[Hg] 98.30 F 18 /min Chief Complaint And Reason For Visit No Information Reason For Referral Reason For Referral No Information History Of Present Illness Encounter Date Complaint History Of Prese nt Illness No Information Functional Status Date Functional Assessmen t No Information Instructions Date Instruction Additional Infor mation No Information Assessments Type Assessment Date No Information Patient Care Teams Name Effective Dates (start - stop) Status Members No Information
--- OUTSIDE RECORDS SUMMARY | 2025-01-02 14:20 | XMS_ITS | Encounter Summary ---
Author Organization [facility] Address [address] [place] [address] Care Team Providers Care Plug Sorter Name Role Phone Unavailable Primary Care Provider Unavailabl e Encounter Details Date Type Department Care Team (Late st Contact Info) Description 11/09/2010 Abstract [facility] Conversion Md, Generic Conversion, Social History Tobacco Use Types Packs/Day Years Used Date Smoking Tobacco: Never Assessed Sex and Gender Information Value Date Recorded Sex Assigned at Not on file Legal Sex Male 4:15 PM CDT Gender Identity Not on file Sexual Orientation Not on file documented as of this encounter Plan of Treatment Not on file documented as of this encounter Visit Diagnoses Not on filedocumented in this encounter
--- OUTSIDE RECORDS SUMMARY | 2025-01-02 14:20 | XMS_ITS | Clinical Summary ---
Author Organization [facility] Address [facility] [place] [address] Care Team Providers Care Executive Chairman Of The Board Name Role Phone Unavailable Primary Care Provider Unavailabl e Social History Tobacco Use Types Packs/Day Years Used Date Smoking Tobacco: Never Assessed Sex and Gender Information Value Date Recorded Sex Assigned at Not on file Legal Sex Male 4:15 PM CDT Gender Identity Not on file Sexual Orientation Not on file Last Filed Vital Signs Vital Sign Reading Time Taken Comments Blood Pressure 136/80 08/18/2011 9:45 AM CDT Pulse 66 08/18/2011 9:45 AM CDT Temperature - - Respiratory Rate - - Oxygen Saturation - - Inhaled Oxygen Concentration - - Weight 79.4 kg (175 lb) 08/18/2011 9:45 AM CDT Height 177.8 cm (5' 10 ) 08/18/2011 9:45 AM CDT Body Mass Index 25.11 08/18/2011 9:45 AM CDT Plan of Treatment Health Maintenance Due Date Last Done Comments DTaP, Tdap and Td Vaccines (1 - Tdap) 1955 Zoster Vaccines (1 of 2) 1986 Pneumococcal Vaccine: 65+ Years (1 of 1 - PCV) 2001 RSV Immunization or 60+ Years (1 - 1-dose 75+ series) 2011 COVID-19 Vaccine ( - season) 2024 Influenza Adult (#1) 2024 07/17/2012, 08/01/2011, 08/11/2010, Additional history exists Meningococcal B Vaccine Aged Out No l onger eligible based on patient's age to complete this topic Meningococcal Vaccine Aged Out No mare marcos eligible based on patient's age to complete this topic RSV Immunizations Under 20 Months Aged Out No longer eligible based on patient's age to complete this topic
--- OUTSIDE RECORDS SUMMARY | 2025-01-02 14:20 | XMS_ITS | Encounter Summary ---
Author Organization [facility] Address [facility] [place] [address] Care Team Providers Care Youth Manager Name Role Phone Unavailable Primary Care Provider Unavailabl e Encounter Details Date Type Department Care Team (Late st Contact Info) Description 11/29/2010 Abstract [facility] Conversion Md, Generic Conversion, Social [...]
[2025-01-02 14:48] LABS: Basophils Absolute Auto 0.1 K/mm3 (0.0-0.1); Basophils Percent Auto 0.9 % (0.2-1.2); Eosinophils Absolute Auto 0.4 K/mm3 (0-0.3); Eosinophils Percent Auto 4.3 % (0-4.4); Hematocrit 41.6 % (42.0-52.0); Hemoglobin 13.6 g/dL (14.0-18.0); Immature Granulocyte Absolute 0.05 K/mm3 (0.00-0.031); Immature Granulocyte Percent A 0.6 % (0-0.5); Lymphocytes Absolute Auto 2.04 K/mm3 (0.9-3.2); Lymphocytes Percent Auto 25.2 % (18.3-44.2); Mean Corpuscular HGB Conc 32.7 g/dl (32-36); Mean Corpuscular Hemoglobin 30.2 pg (26-34); Mean Corpuscular Volume 92.2 fl (80-100); Mean Platelet Volume 8.8 fl (7.4-10.4); Monocytes Absolute Auto 0.8 K/mm3 (0.1-0.6); Monocytes Percent Auto 9.8 % (2.6-8.5); Neutrophils Absolute Auto 4.8 K/mm3 (1.3-6.7); Neutrophils Percent Auto 59.2 % (45.5-73.1); Platelet Count Result 249 k/mm3 (150-375); Red Blood Count 4.51 M/mm3 (4.6-6.20); Red Cell Distribution Width 13.1 % (11.5-14.5); White Blood Count 8.1 K/mm3 (4.5-10.0)
== END 2025-01-02 13:55 | disposition home or self-care (01) ==
LOC: ANHLAB 13:55
PROVIDERS: PCP Family Medicine; Visit Provider Physician Assistant
DX: D64.9 Anemia, unspecified (principal); T14.8XXA Other injury of unspecified body region, initial encounter
CPT/HCPCS: 36415; 85025

== ENCOUNTER 2025-03-17 11:02 | Outpatient (CLI) | payer MEDICARE, SELFPAY ==
[2025-03-17 11:16] LABS: Basophils Absolute Auto 0.1 K/mm3 (0.0-0.1); Basophils Percent Auto 0.9 % (0.2-1.2); Eosinophils Absolute Auto 0.2 K/mm3 (0-0.3); Eosinophils Percent Auto 2.6 % (0-4.4); Hemoglobin 14.6 g/dL (14.0-18.0); Immature Granulocyte Absolute 0.04 K/mm3 (0.00-0.031); Immature Granulocyte Percent A 0.5 % (0-0.5); Lymphocytes Absolute Auto 2.43 K/mm3 (0.9-3.2); Lymphocytes Percent Auto 30.2 % (18.3-44.2); Mean Corpuscular HGB Conc 32.4 g/dl (32-36); Mean Corpuscular Volume 92.4 fl (80-100); Mean Platelet Volume 8.3 fl (7.4-10.4); Monocytes Absolute Auto 0.6 K/mm3 (0.1-0.6); Monocytes Percent Auto 7.2 % (2.6-8.5); Neutrophils Absolute Auto 4.7 K/mm3 (1.3-6.7); Neutrophils Percent Auto 58.6 % (45.5-73.1); Platelet Count Result 229 k/mm3 (150-375); Red Blood Count 4.87 M/mm3 (4.6-6.20); Red Cell Distribution Width 13.6 % (11.5-14.5); White Blood Count 8.1 K/mm3 (4.5-10.0)
[2025-03-17 11:30] LABS: Iron 118 ug/dL (49-181)
--- OUTSIDE RECORDS SUMMARY | 2025-03-17 11:39 | XMS_ITS | Continuity of Care Document ---
Author Organization [facility] Address [address] [place] [address] Phone Care Team Providers Care Supervisor Major Appliance Assembly Name Role Phone Shantanu Dodson MD Unavailable Unavailable Medications Medication Instructions Dosage Effective Dates (start - stop) Status Comments carbidopa-levodopa 25 mg-250 mg Tab take 1 tablet by oral route every evening - Active azithromycin 250 mg Tab (Z-tomas) 2 tabs day 1, the 1 tab days 2-5 - No Longer Active Procedures Procedure Date Offic/outpt E&m [facility] 1 Erx Prescription Sent Advance Directives Directive Yes / No Effective Date File Name No Information Encounters Encounter Description Practice Location Reason(s) For Visit Diagnoses Date Provider Providers Copied on Encounter Offic/outpt E&m [facility], [address], [place], [place], [id number], [place] tel:[phone] [facility] OTHER ACUTE SINUSITISPh aryngitis, Acute [place]. [address], [id number], [place]. tel:[phone] Referring Provider: Shantanu Dodson MD, [address], [address]. tel:[phone] Family History Family Member Type Diagnosis Age At Onset No Information Payers Payer name Insurance type Covered alliance party ID Authoriza tion(s) Medicare MB [id number] Social History Type Description Quantity Date Captured [...]
--- OUTSIDE RECORDS SUMMARY | 2025-03-17 11:39 | XMS_ITS | Data Portability ---
Author Organization [place] - [facility], Main Office Address [address] [place] [address] Care Team Providers Care Hot Stamp Operator Name Role Phone EVA LANCASTER Primary Care Provider EVA LANCASTER Referring Provider Assessment Encounter Date Assessment Date Assessment LastModified by Organization Details LastModified Time 01/06/2023 01/06/2023 HPI: Patient returns. He is here for follow-up of his right shoulder. Last time we saw him he had physical exam findings of a large chronic rotator cuff tear right shoulder. He went through physical therapy. He feels that therapy has helped quite a bit. He is having minimal symptoms in the shoulder at this point. He notices that he has pain if he goes to full elevation or if he has the arm stretched out in extension front of him other than that he is having no symptoms. Physical exam: 87-year-old male alert. He has active elevation of 140 external rotation is to 80 internal rotation is to T10. He has no discomfort range of motion. Has moderate weakness with external rotation as well as abduction. No pain strength testing impression: 87-year-old male has chronic large rotator cuff tear right shoulder. At this point his symptoms are very tolerable. I encouraged him to continue with his home exercise program on a regular basis. Discussed the option of cortisone injection he has worsening of his symptoms and he will keep that in mind. Otherwise we will see him back as needed maxine Not available 01/06/2023 11:00:05 Plan of Treatment Reminders Order Date Submit Date Provider Last Modified By Organization Details Last Modified Time Details Appointments None record ed. Lab None record ed. Referral None record ed. Procedures None record ed. Surgeries None record ed. Imaging None record ed. Medication Orders None record ed. Patient TargetsNo targets recorded. Patient InstructionsNo instructions recorded. Reason for Referral None Reported. Results Created Date Observation Date Name Description Value Unit Range Abnormal Flag Note LastModifiedBy Organization Detail LastModifiedTime 11/25/19 23 11/25/2022 XR, nelsonbrittany thierno No observ ation record ed. [id number] [place] [address], [place], [address], 12/14/2022 21:55:08 Result Notes None recorded. Problems Name Problem SNOMED Code Status Onset Date Resolution Date Notes Provider Name and Address Organization Details Recorded Time Pain of left shoulder joint 88419094056626 109 Active 2022 Not Available [facility] 21:54:12 Pain of right shoulder joint 96359533153709 100 Active 2022 Not Available [facility] 21:54:12 Problem Notes None recorded. Procedures Surgical History Date Name Laterality Status Provider Name and Address Organization Details Recorded Time prostatectomy completed Not Available [facility] 12/14/2022 21:53:39 thyroidectomy completed Not Available [facility] 12/14/2022 21:53:39 hernia repair completed Not Available [facility] 12/14/2022 21:53:39 procedure on tonsils completed Not Available [facility] 12/14/2022 21:53:39 procedure on appendix completed Not Available [facility] 12/14/2022 21:53:39 Cataract Surgery completed Not Available [facility] 12/14/2022 21:53:39 Sinus Surgery completed Not Available [facility] 12/14/2022 21:53:39 hernia repair completed Not Available [facility] 12/14/2022 21:53:39 Imaging Results None recorded. Procedure Notes None recorded. Medical Equipment None Reported. Medications Name Sig Start Date Stop Date Status Note LastModified by Organization Details LastModified Time carbidopa 25 mg-levodopa 250 mg tablet active Not Available Not Available Not Available ciprofloxaci n 500 mg tablet 11/25 completed Not Available Not Available Not Available omeprazole 40 mg capsule,saleem yed release 11/25 completed Not Available Not Available Not Available tamsulosin 0.4 mg capsule active Not Available Not Available Not Available esomeprazole magnesium 40 mg capsule,saleem yed release 11/25 completed Not Available Not Available Not Available lisinopril 10 mg tablet 11/25 completed Not Available Not Available Not Available losartan 25 mg tablet 11/25 completed Not Available Not Available Not Available mupirocin 2 % topical ointment 11/25 completed Not Available Not Available Not Available fluticasone propionate 50 mcg/actuatio n nasal spray,suspen juan josé 11/25 completed Not Available Not Available Not Available finasteride 5 mg tablet active Not Available Not Available Not Available mirtazapine 7.5 mg tablet active Not Available Not Available Not Available multivitamin 2019 active centrum silver for men Not Available Not Available Not Available Low Dose Aspirin 11/25 completed Not Available Not Available Not Available PreserVision AREDS 2019 active Not Available Not Available Not Avai lable Fish Oil 1,000 mg (120 mg-180 mg) capsule Take by oral route . 11/25 completed Not Available Not Available Not Available Vitals Date Recorded Body mass index (BMI) Body height Body weight Provider Name and Address Organization Details Last Updated DateTime 11/25/2022 24.3 kg/m2 170.18 cm 09229.82 g Not Available [facility] 12/14/2022 21:53:42 Date Recorded Body height Provider Name an d Address Organization Details Last Updated DateTime 01/06/2023 170.18 cm HELEN [place] [facility] 01/06/2023 10:07:13 Social History None recorded. Functional Status Question Answer Note LastModified by Organizat ion Details LastModified Time What is your level of alcohol consumption? Occasional [id number] Information not available 12/14/2022 Mental Status None recorded. Family History Relationship Description Onset Age of this Age Resolved Age Notes LastModified by Organization Details LastModified Time Father Family history of malignant neoplasm prosta te [id number] Not available 12/14/2022 21:53:39 Medical History No medical history recorded. Past Encounters Encounter ID Performer Location Encounter Start Date Encounter Closed Date Diagnosis/Indication Diagnosis SNOMED-CT Code Diagnosis ICD10 Code Diagnosis Note [id number] Maximilian Lainez MD [facility] [place] [address] [place] [id number] 11/25/2022 00:00:00 11/27/2022 16:07:39 [id number] MD [facility] [place] [address] [place] [id number] 01/06/2023 10:04:32 01/06/2023 11:17:08 Pain of right shoulder joint 2310063948 1788286 M25.511 Health Concerns Section Related Observation LastModified by Organization Detai ls LastModified Time None Recorded Concern Status LastModified by Organization Details LastModified Time None Recorded Advance Directives Directive None Recorded Payers Encounter Date Sequence Insurance Name Policy Number Policy Padilla Covered Member ID Padilla Member ID Guarantor Name 01/06/2023 1 [place] Faustino Yates [id number] Faustino Yates 01/06/2023 2 [place] [id number] Faustino Yates [id number] Faustino Yates
[2025-03-17 11:41] LABS: Percent Iron Saturation 44 % (20-50)
== END 2025-03-17 11:03 | disposition home or self-care (01) ==
PROVIDERS: PCP Family Medicine; Visit Provider Physician Assistant
DX: D64.9 Anemia, unspecified (principal)
CPT/HCPCS: 36415; 82728; 83540; 83550; 85025

== ENCOUNTER 2025-06-30 11:13 | Outpatient (CLI) | payer MEDICARE, SELFPAY ==
--- NOTE | ~2025-06-30 | XR_ITS ---
EXAMINATION: XR lumbar spine min 4V DATE: 06/30/2025 11:45 INDICATION: Low back pain TECHNIQUE: 5 images of the lumbar spine were obtained COMPARISON: None. FINDINGS: There is bowel gas and stool projecting over the pelvis which limits evaluation. No compression fracture in the lumbar spine. Vascular calcifications in the aorta. Grade 1 retrolisthesis of L2 on L3 and L3 on L4. Grade 1 anterolisthesis of L4 on L5. Bones appear osteopenic. Moderate to severe intervertebral disc space narrowing at the L2-L3, L3-L4, L4-5 and L5-S1 levels. 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 Anterior bridging osteophytes in the visualized lower thoracic spine. IMPRESSION: 1. No compression fracture in the lumbar spine. 2.Grade 1 retrolisthesis of L2 on L3 and L3 on L4. Grade 1 anterolisthesis of L4 on L5. 3.Moderate to severe intervertebral disc space narrowing at the L2-L3, L3-L4, L4-5 and L5-S1 levels. 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 If symptoms persist or worsen, consider an MRI of the lumbar spine for further assessment Reviewed, dictated and finalized at location Q. IMPRESSION: 1. No compression fracture in the lumbar spine. 2.Grade 1 retrolisthesis of L2 on L3 and L3 on L4. Grade 1 anterolisthesis of L 4 on L5. 3.Moderate to severe intervertebral disc space narrowing at the L2-L3, L3-L4, L 4-5 and L5-S1 levels. 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 If symptoms persist or worsen, consider an MRI of the lumbar spine for further assessment
[2025-06-30 12:18] LABS: Add Urine Microscopic? YES; Appearance Urine Clear (Clear); Glucose Urine UA Negative (Negative); Leukocyte Esterase Ur Trace LEU/UL (Negative); Nitrate Urine Negative (Negative); Non Pathogenic Casts 0-2; Specific Grav Ur 1.026 (1.001-1.035)
[2025-06-30 12:34] LABS: Alanine Aminotransferase 16 U/L (6-50); Albumin Level 4.0 g/dL (3.5-5.1); Alkaline Phosphatase 78 U/L (38-126); Anion Gap 6 mmol/L (4-12); Aspartate Amino Transferase 25 U/L (17-59); Bilirubin,Total 0.5 mg/dL (0.2-1.3); Blood Urea Nitrogen 25 mg/dL (9-20); Calcium 8.9 mg/dL (8.4-10.2); Carbon Dioxide 30 mmol/L (22-30); Chloride 102 mmol/L (98-107); Estimated Glomerular Filt Rate > 60; Glucose 78 mg/dL (65-110); Potassium 4.2 mmol/L (3.4-5.0); Sodium 138 mmol/L (137-145); Total Protein 7.7 g/dL (6.3-8.2)
[2025-06-30 13:06] LABS: Thyroid Stimulating Hormone 1.710 uIU/mL (0.465-4.680)
--- OUTSIDE RECORDS SUMMARY | 2025-06-30 13:18 | XMS_ITS | Encounter Summary ---
Author Organization [facility] Address [address] [place] [id number] Care Team Providers Care Cisco Network Architect Name Role Phone Unavailable Primary Care Provider Unavailabl e Encounter Details Date Type Department Care Team (Late st Contact Info) Description 11/29/2010 Abstract [facility] Conversion Md, Generic Conversion, Social [...]
--- OUTSIDE RECORDS SUMMARY | 2025-06-30 13:18 | XMS_ITS | Clinical Summary ---
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 Name Role Phone Unavailable Primary Care Provider [...] 9:45 AM CDT Height 177.8 cm (5' 10) 08/18/2011 9:45 AM CDT Body Mass Index 25.11 08/18/2011 9:45 AM CDT Plan of Treatment Health Maintenance Due Date Last Done Comments DTaP, Tdap and Td Vaccines ( 1 - Tdap) 1955 Pneumococcal Vaccine: 50+ Ye ars (1 of 1 - PCV) 1986 Zoster Vaccines (1 of 2) 1986 RSV Immunization or 60+ Years (1 - 1-dose 75+ series) 2011 COVID-19 Vaccine (1 - 2023-2 5 season) 2025 Meningococcal B Vaccine Aged Out No l onger eligible based on patient's age to complete this topic Meningococcal Vaccine Aged Out No mare marcos eligible based on patient's age to complete this topic RSV Immunizations Under 20 Months Aged Out No longer eligible based on patient's age to complete this topic
--- OUTSIDE RECORDS SUMMARY | 2025-06-30 13:19 | XMS_ITS | Encounter Summary ---
Author Organization [facility] Address [address] [place] [id number] Care Team Providers Care Director Child Name Role Phone Unavailable Primary Care Provider Unavailabl e Encounter Details Date Type Department Care Team (Late st Contact Info) Description 11/09/2010 Abstract [facility] Conversion Md, Generic Conversion, Social History [...]
== END 2025-06-30 11:14 | disposition home or self-care (01) ==
PROVIDERS: PCP Family Medicine; Visit Provider Physician Assistant
DX: M54.50 Low back pain, unspecified (principal); I10 Essential (primary) hypertension; E78.5 Hyperlipidemia, unspecified; E04.1 Nontoxic single thyroid nodule; R63.4 Abnormal weight loss; K21.9 Gastro-esophageal reflux disease without esophagitis; Z00.00 Encounter for general adult medical examination without abnormal findings
CPT/HCPCS: 36415; 72110; 80053; 81001; 84443

== ENCOUNTER 2025-07-28 11:00 | Outpatient (RCR) | payer MEDICARE, SELFPAY ==
--- NOTE | 2025-07-04 10:59 | OPREHPOC ---
Outpatient Therapy Plan of Care This is a Multidisciplinary Plan of Care that may contain components documented by all disciplines (PT, OT, and ST.) PT Problem 1 PT Problem #1 Knowledge Deficit PT Goal 1 Goal / Goal Update 1*independent with HEP 2* correct lifting technique from waist/floor height Target Visit 6 PT Problem 2 PT Problem #2 Pain PT Goal 1 Goal / Goal Update 1* back pain rating of 2/10 at worst with increased activity level Target Visit 6 PT Problem 3 PT Problem #3 Impaired Flexibility PT Goal 1 Goal / Goal Update increase flexibility to decrease pull and strain to lumbar-sacral spine: hamstring length with supine SLR to 50' 1* R 2* L anterior hip-quad length with prone knee flexion 105' 3* R 4* L Target Visit 6 PT Problem 4 PT Problem #4 Impaired Strength PT Goal 1 Goal / Goal Update increase strength of trunk and hips, to improve posture and position of spine: gross R and L strength of LE's and trunk 4+/5
--- NOTE | 2025-07-04 10:59 | PTOPEVAL1 ---
Assessment and note entered by Nicolasa Deal, PT Evaluation Information Assessment Status Evaluation ICD-10 Condition Codes (PT) Pain in low back M54.50 Onset about 2 weeks ago Subjective Information intermittent history of back pain; about 2 weeks ago, onset of back pain, took aleve & rested, now it has eased; no pain in back now, worried it will come back activity: home with , independent with self and home, yard tasks; Reported Pain Level Pain Score 0: Self Report Additional Pain Score Comments back pain is now eased off; when it was hurting, was over R and L lumbar; discomfort with standing/ walking -11/25 Assessment PT Clinical Summary Guilherme has the diagnosis of back pain. He reports sudden onset of back pain few weeks ago, that has eased now. But continues to have pain with standing still and cannot stand upright. His history includes intermittent bouts of back pain, with previous PT and chiropractor care in the past . Recent x rays were performed, but radiologist has not read them yet. Back index rating of 26% limitation in activity level. He is active and does yard work, and does not do any regular fitness activity. With the evaluation, he has poor posture with rounded shoulders and trunk, with flat lumbar spine; tightness of R and L hamstrings and anterior hip-quad muscles, with slight decrease in trunk and hip strength. Skilled PT services are indicated for modalities to decrease pain, therapeutic exercises to increase flexibility of hips and trunk and strength trunk with education for HEP, body mechanics and posture. Plan of Care Interventions Electrical Stimulation,Hot Pack/Cold Pack,Manual Therapy,Neuro Re-education,Patient/Caregiver Education,Therapeutic Activities,Self-Care/Home Management,Ultrasound PT Services Indicated Yes Treatment Frequency and 1-2x/wk for 6 visits Duration These treatments will address the objective and functional deficits as defined above. The patient will be advanced safely and appropriately in order for the patient to progress towards his/her prior level of function. Additional exercises will be introduced and as well as a comprehensive home exercise program upon discharge, if needed, ?to ensure carryover of functional gains achieved in the clinic. This treatment plan has been reviewed and agreement upon by the patient.
--- NOTE | 2025-07-28 11:39 | OPREHPOC ---
Outpatient Therapy Plan of Care This is a Multidisciplinary Plan of Care that may contain components documented by all disciplines (PT, OT, and ST.) PT Problem 1 PT Problem #1 Knowledge Deficit PT Goal 1 Goal / Goal Update 1*independent with HEP 2* correct lifting technique from waist/floor height 07-28-25 d/c goals met Target Visit 6 Progress Met PT Problem 2 PT Problem #2 Pain PT Goal 1 Goal / Goal Update 1* back pain rating of 2/10 at worst with increased activity level 07-28-25 d/c goal met Target Visit 6 Progress Met PT Problem 3 PT Problem #3 Impaired Flexibility PT Goal 1 Goal / Goal Update increase flexibility to decrease pull and strain to lumbar-sacral spine: hamstring length with supine SLR to 50' 1* R 2* L anterior hip-quad length with prone knee flexion 105' 3* R 4* L 07-28-25 d/c goal 3,4 met #1 and 2 improved to 45' Target Visit 6 Progress Partially Met PT Problem 4 PT Problem #4 Impaired Strength PT Goal 1 Goal / Goal Update increase strength of trunk and hips, to improve posture and position of spine: gross R and L strength of LE's and trunk 4+/5 07-28-25 d/c goal met Target Visit 6 Progress Met
--- NOTE | 2025-07-28 11:39 | PTOPDC ---
Assessment and note entered by Nicolasa Deal, PT Assessment Status Discharge ICD-10 Condition Codes (PT) Pain in low back M54.50 Onset about 2 weeks ago Subjective Information back is doing better and ready to be done with therapy; have been doing the exercises at home; nothing at home makes his back hurt; Reported Pain Level Pain Score 0: Self Report Additional Pain Score Comments no pain in his back; Assessment PT Clinical Summary Guilherme has received 6 PT sessions. He has improved in all areas, and no longer has back pain. With today's assessment: no pain in his back; back index self rating of 8% limitation in activity- lifting limited due to age and activity, not back pain; increase flexibility of R and L hamstrings with supine SLR 45' and anterior hip- quad with prone knee flexion R 110'/ L 115'; increase strength of trunk and hips to 4+/5; education completed for HEP, posture and body mechanics. The goals were achieved, except hamstring length. Discharge PT services. He is to continue with the HEP and monitor back positioning. Plan of Care PT Services Indicated No
== END 2025-07-28 13:11 | disposition home or self-care (01) ==
LOC: ANHPT 11:00
PROVIDERS: PCP Family Medicine; Visit Provider Physician Assistant
DX: M54.50 Low back pain, unspecified (principal)
CPT/HCPCS: 97110; 97161; 97530